=== PATIENT | female | born 1975 | race Caucasian/White ===

== ENCOUNTER 2019-06-29 20:30 | Inpatient (IN) ==
[2019-06-29 20:56] LABS: Basophils % 0.3 % (0.1-2.0); Eosinophils # 0.1 K/mm3 (0.0-0.4); Eosinophils % 1.5 % (0.1-12.0); Hematocrit 49.7 % (37.0-47.0); Hemoglobin 15.9 g/dL (12.2-16.2); Lymphocytes # 1.4 K/mm3 (0.7-4.5); Lymphocytes % 14.9 % (10-50); Mean Corpuscular Volume 93.7 fl (81-99); Mean Platelet Volume 8.4 fl (7.4-10.4); Monocytes # 0.4 K/mm3 (0.1-1.0); Neutrophils # 7.4 K/mm3 (1.8-7.8); Neutrophils % 79.3 % (37.0-80.0); Platelet Count 279 K/mm3 (142-424); Red Cell Distribution Width 13.5 % (11.5-17.5); White Blood Count 9.3 K/mm3 (4.8-10.8)
--- NOTE | 2019-06-29 21:02 | Emergency Department Note ---
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 Diabetes mellitus complication status: with other specified complication Qualified Code(s): E11.69 - Type 2 diabetes mellitus with other specified complication Obesity Qualifiers: Obesity type: due to excess calories Obesity classification: adult class 3 (BMI >= 40) Serious obesity comorbidity presence: with serious comorbidity Body mass index: BMI 40.0-44.9 Qualified Code(s): E66.01 - Morbid (severe) obesity due to excess calories; Z68.41 - Body mass index (BMI) 40.0-44.9, adult Disposition: Admitted as Observation Condition on Discharge: Good Referrals: Marbin Del Real [Primary Care Provider] - - Critical Care Critical Care Time: No Attestation: On , the high probability of a clinically significant, sudden or life threatening deterioration of the following system(s) required my full and direct attention, intervention and personal management. The time I documented below is in addition to time spent performing reported procedures but includes the following listed in this critical care notation. Medical Decision Making - Medical Records Medical records reviewed: Yes: I reviewed the patient's medical records. - Dameon Inquiry Pt receiving controlled substance: No Vital Signs: 06/29/19 20:39 06/29/19 21:20 Temperature 97.8 F Temperature Source Oral Pulse Rate [Right] 103 H 92 H Respiratory Rate 20 Blood Pressure [Right Arm] 161/105 H 158/91 H Blood Pressure Mean [Right Arm] 123 113 Blood Pressure Source [Right Arm] Automatic Cuff Blood Pressure Position [Right Arm] Sitting 02 Sat by Pulse Oximetry 100 Oxygen Delivery Method Room Air - Lab Data Lab results reviewed: Yes: I reviewed the patient's lab results. Lab Results 06/29/19 20:48: WBC 9.3, RBC 5.30, Hgb 15.9, Hct 49.7 H, MCV 93.7, MCH 30.0, MCHC 32.0, RDW 13.5, Plt Count 279, MPV 8.4, Neut % (Auto) 79.3, Lymph % (Auto) 14.9, Sutton % (Auto) 4.0, Eos % (Auto) 1.5, Baso % (Auto) 0.3, Neut # (Auto) 7.4, Lymph # (Auto) 1.4, Sutton # (Auto) 0.4, Eos # (Auto) 0.1, Baso # (Auto) 0.0 06/29/19 20:48: Sodium 134 L, Potassium 3.6, Chloride 97 L, Carbon Dioxide 27, Anion Gap 13.6, BUN 9, Creatinine 0.84, Estimated Creat Clear 75, Estimated GFR 74, Est GFR ( Amer) 90, Glucose 261 H, Calcium 9.4, Troponin I 0.99 H Result diagrams: 06/29/19 20:48 06/29/19 20:48 Orders (Tests/Meds): ED MEDICATIONS Discontinued Medications Generic Name Dose Route Start Last Admin Trade Name Freq PRN Reason Stop Dose Admin Aspirin 243 mg 06/29/19 20:49 06/29/19 20:59 Aspirin 81mg Chewable Tablet PO 06/29/19 20:50 243 mg ONCE ONE Administration Ketorolac Tromethamine 30 mg 06/29/19 20:52 06/29/19 20:59 Toradol 30mg/Ml Vial IV 06/29/19 20:53 30 mg ONCE ONE Administration Nitroglycerin 0.4 mg 06/29/19 20:52 06/29/19 21:00 Nitrostat 0.4mg Sl Tablet SL 06/29/19 20:53 1 tab ONCE ONE Administration ORDERS Category Date Time Status XR chest 2V Stat Exams 06/29/19 20:49 Taken Hemoglobin A1C Stat Lab 06/29/19 21:32 Ordered Lipid Panel Stat Lab 06/29/19 21:32 Ordered Troponin I Q3H Lab 06/29/19 23:50 Ordered Troponin I Q3H Lab 06/30/19 02:50 Ordered ECG Request by /Erica Stat Y 06/29/19 20:49 Ordered - Radiology Data #1 Image(s): Chest Image Reviewed: Yes I reviewed the patient's radiology image Preliminary Findings: Normal/NAD - ECG Data Tracing #1 Normal Sinus Rhythm: Yes Ischemic changes: non-specific ST-T wave changes - Physician Consults Physician Consulted: roman Reason -: Admission Additional Consult: adi Reason -: Pt condition Chest Pain HPI - General Chief Complaint: Chest Pain Stated Complaint: Left shoulder,chest and R shoulder Time Seen by Provider: 06/29/19 20:45 Mode of Arrival: Ambulatory Source of Information: Patient, Relative, Medical Record Limitations: No Limitations Description of Symptoms (Recalled from ER Triage Doc. by RN): PATIENT PRESENTS TO TX 7 C/O L SHOULDER PAIN X "A COUPLE OF DAYS." STATES TODAY SHE NOTICED THE PAIN RADIATING DOWN TO L SIDE OF CHEST, ACROSS HER NECK AND TO R SHOULDER. PATIENT REPORTS PAIN IS RESOLVED UPON ARRIVAL. REPORTS TAKING ASA 81MG AND TYLENOL HEEL DIPPER. PATIENT REPORTS HISTORY OF RI AND FIBROMYALGIA. - History of Present Illness HPI narrative: this pt reports lt sided scapular pain over the last few days - with radiation to lt ant chest with nausea tonight but no sob and reports rad to bilat upper ext - had same pain 5 yrs ago and had elevated cardiac enz and cath at [facility] with no stents - on no meds - has untreated bp and diabetes and uses tob MD complaint: chest pain indicative of cardiac Onset (ago): day(s) Duration: intermittent Activity at onset: during rest Pain location: other (scapular ) Quality: sharp Pain radiation: back Relieving factors: nothing Risk Factors for CAD: Hypertension, Hypercholesterolemia, Family Hx of CAD, Diabetes, Smoking Treatments prior to or on arrival for Cardiac Chest Pain: none - BHARTI Score for Non-Stemi Age of Patient: 40-49 years old Heart Rate: 90-109 bpm Systolic Blood Pressure: 160-199 mmHg Serum Creatinine: 0.80-1.19 mg/dl CHF Kill[place] Class: I-No CHF Other Risk Factors: Elevated Cardiac Enzymes or Biomarkers Non-Stemi Risk Score: 71 - Related Data Prior Cardiac Testing/Procedures: Cardiac Angiogram On Oral Contraceptives: No Home Medications Medication Instructions Recorded Confirmed No Known Home Medications 06/29/19 06/29/19 Allergies Allergy/AdvReac Type Severity Reaction Status Date / Time acetaminophen [From Vicodin] AdvReac Vomiting Verified 06/29/19 20:51 hydrocodone [From Vicodin] AdvReac Vomiting Verified 06/29/19 20:51 oxycodone [From Percocet] AdvReac Vomiting Verified 06/29/19 20:51 LISINOPRIL Allergy Intermediate JOBY COUGH Uncoded 06/04/17 15:33 COCONUT Allergy Unknown Uncoded 06/04/17 15:33 CODEINE Allergy Unknown NA-NAUSEA/V Uncoded 06/04/17 15:33 OMITING ONION Allergy Unknown Uncoded 06/04/17 15:33 STRAWBERRIES Allergy Unknown Uncoded 06/04/17 15:33 [facility] History - Hepatitis A Screen Drug use history?: No High risk sexual behaviors?: No History of sexually transmitted infection?: No Currently employed?: No Childcare worker?: No Do you have indoor plumbing?: Yes Do you have electricity?: Yes Attestation statement:: This patient has been screened for Hepatitis A risk factors. I have reviewed the patient's past medical history: Yes - Social History Smoking Status: Current every day smoker Tobacco Type: cigarettes # Packs/Day (cigarettes): 1 Alcohol Intake: former Substance Use Type: opiates, prescription drug Occupational Status: employed ROS Obtained: Yes All systems reviewed & no additional complaints - Constitutional Constitutional: Denies fever(s) - Eyes Eyes: Denies change in vision - ENT Ears, Nose, Mouth, and Throat: Denies sore throat - Cardiovascular Cardiovascular: Denies chest pain - Respiratory Respiratory: No cough - Gastrointestinal Gastrointestingal: Denies: abdominal pain - Genitourinary Female Genitourinary: Denies hematuria - Integumentary/Breasts Skin/Breast: Denies rash - Neurologic Neurologic: Denies frequent falls, Denies seizure-like activity Physical Exam - General General appearance: alert, obese - Head Head exam: normocephalic - Eye Eye exam: Present: PERRL, EOMI - ENT ENT exam: Present: mucous membranes moist - Neck Neck exam: Absent: trachea midline - Respiratory Respiratory exam: Present: normal lung sounds bilaterally. Absent: respiratory distress - Cardiovascular Cardiovascular exam: Present: regular rate, systolic murmur. Absent: rubs, gallop - Abdominal Exam Abdominal exam: Present: soft - Extremities Exam Extremities exam: Present: full ROM - Neurological Exam Neurological exam: Present: alert, oriented X3, CN II-XII intact - Psychiatric Psychiatric exam: Present: normal affect - Skin Skin exam: Absent: rash
[2019-06-29 21:22] LABS: Anion Gap 13.6 mEq/L (5-15); Calcium 9.4 mg/dL (8.5-10.1)
[2019-06-29 21:46] LABS: Chol/HDL Ratio 4.8 (1-3.5)
[2019-06-29 22:14] LABS: Microscopic, Urine URINE MICROSCOPIC (MICROSCOPIC)
[2019-06-29 22:17] LABS: Appearance,Urine CLEAR (Clear); Bilirubin,Urine Negative (Negative); Blood, Urine Negative (Negative); Color,Urine YELLOW (Yellow); Glucose,Urine (UA) 3+ (Negative); Ketones,Urine Negative (Negative); Leukocyte Esterase,Urine Negative (Negative); PH,Urine 6.5 (5.0-8.5); Protein,Urine Negative (Negative)
[2019-06-29 22:23] LABS: Bacteria,Urine Trace /lpf
[2019-06-29 22:26] LABS: Amphetamine/Metha Screen,Urine Negative ng/mL (<1000); Barbiturates Screen,Urine Negative ng/mL (<200); Benzodiazepines Screen,Urine Negative ng/mL (<200); Cannabinoid Screen,Urine Negative ng/mL (<50); Cocaine Screen,Urine Negative ng/mL (<300); Methadone Screen,Urine Negative ng/mL (<300); Opiate Screen,Urine Negative ng/mL (<300); Phencyclidine Screen,Urine Negative ng/mL (<25)
[2019-06-30 05:41] LABS: Basophils % 0.4 % (0.1-2.0); Eosinophils # 0.2 K/mm3 (0.0-0.4); Hematocrit 40.6 % (37.0-47.0); Lymphocytes # 2.2 K/mm3 (0.7-4.5); Lymphocytes % 24.5 % (10-50); Mean Corpuscular HGB Conc 34.2 g/dL (31.8-35.4); Mean Corpuscular Volume 88.7 fl (81-99); Mean Platelet Volume 8.5 fl (7.4-10.4); Monocytes # 0.4 K/mm3 (0.1-1.0); Monocytes % 4.2 % (1.7-9.3); Neutrophils # 6.1 K/mm3 (1.8-7.8); Neutrophils % 68.9 % (37.0-80.0); Platelet Count 261 K/mm3 (142-424); Red Blood Count 4.58 M/mm3 (4.20-5.40); Red Cell Distribution Width 13.4 % (11.5-17.5); White Blood Count 8.9 K/mm3 (4.8-10.8)
[2019-06-30 05:43] LABS: Anion Gap 12.2 mEq/L (5-15); Calcium 8.9 mg/dL (8.5-10.1); INR 0.94 (0.9-1.1); Prothrombin Time 9.8 seconds (9.4-11.8)
--- NOTE | 2019-06-30 07:12 | Pharmacy Consult Notes ---
[facility] Pharmacy VTE Monitoring - Patient Demographics Admission date: 06/29/19 Report Date: 06/30/19 Time: 07:12 Allergies/Adverse Reactions: Patient Allergies red dye Allergy (Severe, Verified 06/29/19 23:47) facial/throat swelling tomato Allergy (Unknown, Verified 06/30/19 02:09) Cough AND Heartburn hydrocodone [From Vicodin] Adverse Reaction (Verified 06/29/19 20:51) Vomiting oxycodone [From Percocet] Adverse Reaction (Verified 06/29/19 20:51) Vomiting COCONUT Allergy (Severe, Uncoded 06/29/19 23:47) facial swelling STRAWBERRIES Allergy (Severe, Uncoded 06/29/19 23:47) facial/throat swelling LISINOPRIL Allergy (Intermediate, Uncoded 06/04/17 15:33) JOBY COUGH CODEINE Allergy (Mild, Uncoded 06/29/19 23:47) NA-NAUSEA/VOMITING ONION Allergy (Unknown, Uncoded 06/29/19 23:47) Vomiting Height: 1.65 m Weight: 110.45 kg Patient Problems: Current Active Problems Non-STEMI (non-ST elevated myocardial infarction) (Acute) HTN (hypertension) (Acute) Diabetes mellitus (Acute) Obesity (Acute) Tobacco use (Acute) - VTE Risk Labs: VTE Related Lab Results Hgb 14.0 g/dL (12.2-16.2) D 06/30/19 05:20 Hct 40.6 % (37.0-47.0) 06/30/19 05:20 Plt Count 261 K/mm3 (142-424) 06/30/19 05:20 PT 9.8 seconds (9.4-11.8) 06/30/19 05:20 INR 0.94 (0.9-1.1) 06/30/19 05:20 BUN 7 mg/dL (7-18) 06/30/19 05:20 Creatinine 0.65 mg/dL (0.55-1.02) D 06/30/19 05:20 Estimated Creat Clear 195 mL/min (50-200) 06/30/19 05:20 VTE Score: 11 VTE Risk Level: Moderate Risk - Prophylaxis VTE Prophylaxis Ordered?: Yes Types of VTE Prophylaxis: TEDS Knee High Location of Applied Device: Bilateral Lower Extremeties
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
--- NOTE | 2019-06-30 09:06 | Electrocardiograph Report ---
APPROVED REPORT Exam: Resting ECG HR:93 bpm ECG Measurements Heart Rate 93 AXES NH 142 P 43 QRSd 70 QRS -3 QT 360 T46 QTc 447 <Conclusion> Normal sinus rhythm Possible Left atrial enlargement NDST-T Changes Abnormal ECG Electronically signed by : Robert Flowers, 06/30/2019 09:06:13
--- NOTE | 2019-06-30 20:21 | Cardiology Report ---
APPROVED REPORT EXAM: Comprehensive 2D, Doppler, and color-flow Echocardiogram Thread Drawer: Mar[facility] CRT Ht: 5 ft 4 in Wt: 250lbs BSA: 2.15 BP: 158/91 mmHg Indications: cp, smoking, obesity, old mi x 2, htn, dm, htn 2D Dimensions LVOT 1.97 cm (M/F) 1.5-2.5 M-Mode Dimensions RVDd 2.52 cm (0.9-2.6)LVDd 4.20 cm (3.5-5.7) LVDs 3.14 cm (3.5-5.7)IVSd 1.81 cm (0.6-1.1) PWd 0.83 cm (0.6-1.1)EF (Teich) 50.30% FS 25.20% EDV (Teich) 78.60 mL ESV (Teich) 39.10 mL LV Diastology E/A Ratio 0.72 Mitral Valve MV A Velocity 84.00 (40-130 cm/s) Left Ventricle Left atrium is mildly enlarged, left ventricle is normal size, mild concentric left ventricular hypertrophy, visually estimated ejection fraction 40 to 45% with multiple segmental wall motion abnormality described above, grade 1 diastolic dysfunction seen with tissue Doppler evidence of raise left atrial pressure. Right Ventricle Right atrium and right ventricle are normal size and contractility. Aortic Valve Aortic valve is thickened and calcified leaflet chordae display good mobility, there is no aortic stenosis or aortic insufficiency. Mitral Valve Mitral valve is grossly normal, there is mild mitral regurgitation. Tricuspid Valve Tricuspid valve is grossly normal, there is mild tricuspid regurgitation, tricuspid regurgitation jet velocity is inadequate for calculation of the right ventricular systolic pressure. Pulmonic Valve Pulmonic valve is poorly visualized. Great Vessels Aortic root is normal size. Pericardium No significant pericardial effusion noted. Conclusion 1. Mildly enlarged left atrium, normal left ventricular size, mild concentric left ventricular hypertrophy, visually estimated ejection fraction 40 to 45% with multiple segmental wall motion abnormality described above, grade 1 diastolic dysfunction seen with tissue Doppler evidence of raise left atrial pressure. 2. Mild mitral and tricuspid regurgitation. 3. No significant pericardial effusion noted. Electronically signed by : Jerod Elise, 06/30/2019 20:20:49
[2019-07-01 06:14] LABS: Basophils % 0.2 % (0.1-2.0); Eosinophils # 0.2 K/mm3 (0.0-0.4); Eosinophils % 1.6 % (0.1-12.0); Hemoglobin 14.3 g/dL (12.2-16.2); Lymphocytes # 1.4 K/mm3 (0.7-4.5); Lymphocytes % 13.9 % (10-50); Mean Corpuscular Volume 90.2 fl (81-99); Monocytes # 0.4 K/mm3 (0.1-1.0); Monocytes % 4.3 % (1.7-9.3); Neutrophils # 8.2 K/mm3 (1.8-7.8); Neutrophils % 80.1 % (37.0-80.0); Platelet Count 245 K/mm3 (142-424); Red Blood Count 4.66 M/mm3 (4.20-5.40); Red Cell Distribution Width 13.4 % (11.5-17.5); White Blood Count 10.2 K/mm3 (4.8-10.8)
[2019-07-01 06:24] LABS: Anion Gap 12.4 mEq/L (5-15); Calcium 8.7 mg/dL (8.5-10.1)
--- NOTE | 2019-07-01 07:47 | Progress Note ---
<Carolina Crowder - Last Filed: 07/01/19 07:42> Internal Medicine - PN: Subj *Date: 07/01/19 *Time: 07:42 Interval history: Patient states her anxiety has kicked in;she had trouble sleeping last night; she handles this at home by feeding the chickens or cleaning the house. She states she did take Celexa about 3 years ago for depression/anxiety and would like to start again. Otherwise feels better. she describes more energy and no CP. She is eating without problems and bowels have moved. She is voiding QS. She ambulates without difficulty. Pt wishes to go home. BP has continued to be elevated and she received an extra dose of BP med yesterday. BS have been elevated requiring Insulin; Dietary did see pt yesterday with assessment and teaching. Cardiac cath completed yesterday with the following results: IMPRESSION Severe proximal LAD disease which is the culprit for the acute non-ST elevation myocardial infarction Successful stenting the proximal LAD severe disease reduced to 0% with 2 drug-eluting stents placed in a contiguous manner Mildly reduced ejection fraction with regional wall motion abnormality Normal to mildly elevated LVEDP PLAN 1. Brilinta 90 twice daily plus aspirin 81 mg a day for 1 year 2. LDL less than 55 to be achieved with high intensity statin 3. JOBY inhibitors combined with carvedilol and uptitrated as tolerated 4. Avoidance of tobacco products 5. Aggressive risk factor modification 6. Cardiac rehabilitation Echo completed yesterday with pending results. Laboratory Tests 06/29/19 06/29/19 20:48 20:48 Hemoglobin A1c 8.4 H Triglycerides 156 Cholesterol 208 H LDL Cholesterol 134 H VLDL Cholesterol 31 HDL Cholesterol 43 Cholesterol/HDL Ratio 4.8 H Exam Vital signs and Labs for Last 24 Hours: Temp Pulse Resp BP Pulse Ox 98.0 F 79 16 141/69 H 94 L 06/30/19 20:25 07/01/19 04:00 07/01/19 04:00 07/01/19 04:00 07/01/19 04:00 Laboratory Results - last 24 hr 06/30/19 10:56: POC Glucose 192 H 06/30/19 12:55: Activated Clotting Time 331 H* 06/30/19 16:52: POC Glucose 212 H 06/30/19 20:11: POC Glucose 268 H 07/01/19 06:04: WBC 10.2, RBC 4.66, Hgb 14.3, Hct 42.0, MCV 90.2, MCH 30.7, MCHC 34.0, RDW 13.4, Plt Count 245, MPV 9.0, Neut % (Auto) 80.1 H, Lymph % (Auto) 13.9, [place] % (Auto) 4.3, Eos % (Auto) 1.6, Baso % (Auto) 0.2, Neut # (Auto) 8.2 H, Lymph # (Auto) 1.4, [place] # (Auto) 0.4, Eos # (Auto) 0.2, Baso # (Auto) 0.0 07/01/19 06:04: Sodium 135 L, Potassium 3.4 L, Chloride 102, Carbon Dioxide 24, Anion Gap 12.4, BUN 10 D, Creatinine 0.65, Estimated Creat Clear 96, Estimated GFR 99, Est GFR ( Amer) 120, Glucose 160 H, Calcium 8.7 I & O for Last 24 hours: Intake & Output 06/28/19 06/29/19 06/30/19 07/01/19 11:59 11:59 11:59 11:59 Intake Total 317 / 317 1119 / 1119 Balance 317 / 317 1119 / 1119 Weight 243 lb 8 oz 243 lb 5 oz - Constitutional no acute distress Comments: sitting on bedside crying - *Routine Respiratory Exam Present: CTA bilaterally (A&P) - *Routine Cardiovascular Exam Present: RRR Comments: ST on monitor - *Routine Abdominal Exam Present: soft, normoactive bowel sounds. Absent: tenderness - *Routine Extremities Exam Absent: edema, calf tenderness - *Routine Neurological Exam Present: alert, oriented X3 - Routine Psychiatric Exam Present: depressed, anxious Assessment and Plan (1) Non-STEMI (non-ST elevated myocardial infarction) Current visit: Yes Status: Acute Category: Medical Code(s): I21.4 - Non-ST elevation (NSTEMI) myocardial infarction (2) Diabetes mellitus Current visit: Yes Status: Acute Qualifiers: Diabetes mellitus type: type 2 Diabetes mellitus intermediate frame tender insulin use: [facility] intermediate frame tender use Diabetes mellitus complication status: with other specified complication Qualified Code(s): E11.69 - Type 2 diabetes mellitus with other specified complication Category: Medical Code(s): E11.9 - Type 2 diabetes mellitus without complications (3) HTN (hypertension) Current visit: Yes Status: Acute Qualifiers: Hypertension type: essential hypertension Qualified Code(s): I10 - Essential (primary) hypertension Category: Medical Code(s): I10 - Essential (primary) hypertension (4) Obesity Current visit: Yes Status: Acute Qualifiers: Obesity type: due to excess calories Obesity classification: adult class 3 (BMI >= 40) Serious obesity comorbidity presence: with serious comorbidity Body mass index: BMI 40.0-44.9 Qualified Code(s): E66.01 - Morbid (severe) obesity due to excess calories; Z68.41 - Body mass index (BMI) 40.0-44.9, adult Category: Medical Code(s): E66.9 - Obesity, unspecified (5) Tobacco use Current visit: Yes Status: Acute Category: Medical Code(s): Z72.0 - Tobacco use - Assessment and plan all Dx Assessment and Plan for all problems:: BS have been elevated requiring Insulin. Will start on Metformin today. Will start on Celexa this AM. She is ready for discharge if approved by cardiology with meds as per their direction. <Ron Merchant - Last Filed: 07/01/19 09:52> Internal Medicine - PN: Subj *Date: 07/01/19 *Time: 09:49 Exam Vital signs and Labs for Last 24 Hours: Temp Pulse Resp BP Pulse Ox 98.0 F 84 16 163/97 H 94 L 06/30/19 20:25 07/01/19 09:00 07/01/19 09:00 07/01/19 09:00 07/01/19 09:00 Laboratory Results - last 24 hr 06/30/19 10:56: POC Glucose 192 H 06/30/19 12:55: Activated Clotting Time 331 H* 06/30/19 16:52: POC Glucose 212 H 06/30/19 20:11: POC Glucose 268 H 07/01/19 05:07: POC Glucose 161 H 07/01/19 06:04: WBC 10.2, RBC 4.66, Hgb 14.3, Hct 42.0, MCV 90.2, MCH 30.7, MCHC 34.0, RDW 13.4, Plt Count 245, MPV 9.0, Neut % (Auto) 80.1 H, Lymph % (Auto) 13.9, [place] % (Auto) 4.3, Eos % (Auto) 1.6, Baso % (Auto) 0.2, Neut # (Auto) 8.2 H, Lymph # (Auto) 1.4, [place] # (Auto) 0.4, Eos # (Auto) 0.2, Baso # (Auto) 0.0 07/01/19 06:04: Sodium 135 L, Potassium 3.4 L, Chloride 102, Carbon Dioxide 24, Anion Gap 12.4, BUN 10 D, Creatinine 0.65, Estimated Creat Clear 96, Estimated GFR 99, Est GFR ( Amer) 120, Glucose 160 H, Calcium 8.7 I & O for Last 24 hours: Intake & Output 06/28/19 06/29/19 06/30/19 07/01/19 11:59 11:59 11:59 11:59 Intake Total 317 / 317 1739 / 1739 Balance 317 / 317 1739 / 1739 Weight 243 lb 8 oz 243 lb 5 oz Assessment and Plan (1) Non-STEMI (non-ST elevated myocardial infarction) Current visit: Yes Status: Acute Category: Medical Code(s): I21.4 - Non-ST elevation (NSTEMI) myocardial infarction (2) Diabetes mellitus Current visit: Yes Status: Acute Qualifiers: Diabetes mellitus type: type 2 Diabetes mellitus intermediate frame tender insulin use: without intermediate frame tender use Diabetes mellitus complication status: with other specified complication Qualified Code(s): E11.69 - Type 2 diabetes mellitus with other specified complication Category: Medical Code(s): E11.9 - Type 2 diabetes mellitus without complications (3) HTN (hypertension) Current visit: Yes Status: Acute Qualifiers: Hypertension type: essential hypertension Qualified Code(s): I10 - Essential (primary) hypertension Category: Medical Code(s): I10 - Essential (primary) hypertension (4) Obesity Current visit: Yes Status: Acute Qualifiers: Obesity type: due to excess calories Obesity classification: adult class 3 (BMI >= 40) Serious obesity comorbidity presence: with serious comorbidity Body mass index: BMI 40.0-44.9 Qualified Code(s): E66.01 - Morbid (severe) obesity due to excess calories; Z68.41 - Body mass index (BMI) 40.0-44.9, adult Category: Medical Code(s): E66.9 - Obesity, unspecified (5) Tobacco use Current visit: Yes Status: Acute Category: Medical Code(s): Z72.0 - Tobacco use (6) Coronary artery disease Current visit: Yes Status: Chronic Category: Medical Code(s): I25.10 - Atherosclerotic heart disease of [place] coronary artery without angina pectoris (7) Stented coronary artery Current visit: Yes Status: Acute Category: Surgical Code(s): Z95.5 - Presence of coronary angioplasty implant and graft (8) Hyperlipidemia Current visit: Yes Status: Chronic Category: Medical Code(s): E78.5 - Hyperlipidemia, unspecified (9) Anxiety Current visit: Yes Status: Acute Category: Medical Code(s): F41.9 - Anxiety disorder, unspecified (10) Cardiomyopathy Current visit: Yes Status: Acute Category: Medical Code(s): I42.9 - Cardiomyopathy, unspecified (11) Anxiety disorder Current visit: Yes Status: Acute Category: Medical Code(s): F41.9 - Anxiety disorder, unspecified - Assessment and plan all Dx Assessment and Plan for all problems:: Patient seen and examined. Concur with above assessment and plan. She is stable for discharge per cardiology recommendations. She is also being started on insulin and is given an order to obtain a home glucometer to monitor her blood sugar. As noted, she is also been started on Celexa for her anxiety. She is to follow-up with Dr. Patel in 1 to 2 weeks and with [facility] in 2 weeks.
--- NOTE | 2019-07-01 09:21 | Progress Note ---
Subjective Date: 07/01/19 Time: 09:00 Principal diagnosis: angina Interval history: This is a 43-year-old white female who presented to the emergency department with complaints of shoulder pain which she attributed to wrestling with her [place] Gallow[place]. She states that this did progress into chest discomfort as well. She underwent left cardiac catheterization secondary to an elevated troponin and had stenting to the LAD with 2 drug-eluting stents. The patient had an ejection fraction around 45%. Her LVEDP was mildly elevated. This morning she denies any chest pain or pressure. She denies any shortness of breath or edema. She denies any fever, chills, nausea, vomiting, diarrhea, PND or orthopnea. She is complaining of some anxiety this morning. She states that the school just called and said that her son was vomiting and this has made her somewhat anxious. She is being started on Celexa per her primary care provider. Exam Vital signs and Labs for Last 24 Hours: Temp Pulse Resp BP Pulse Ox 98.0 F 84 16 163/97 H 94 L 06/30/19 20:25 07/01/19 09:00 07/01/19 09:00 07/01/19 09:00 07/01/19 09:00 Laboratory Results - last 24 hr 06/30/19 10:56: POC Glucose 192 H 06/30/19 12:55: Activated Clotting Time 331 H* 06/30/19 16:52: POC Glucose 212 H 06/30/19 20:11: POC Glucose 268 H 07/01/19 05:07: POC Glucose 161 H 07/01/19 06:04: WBC 10.2, RBC 4.66, Hgb 14.3, Hct 42.0, MCV 90.2, MCH 30.7, MCHC 34.0, RDW 13.4, Plt Count 245, MPV 9.0, Neut % (Auto) 80.1 H, Lymph % (Auto) 13.9, [place] % (Auto) 4.3, Eos % (Auto) 1.6, Baso % (Auto) 0.2, Neut # (Auto) 8.2 H, Lymph # (Auto) 1.4, [place] # (Auto) 0.4, Eos # (Auto) 0.2, Baso # (Auto) 0.0 07/01/19 06:04: Sodium 135 L, Potassium 3.4 L, Chloride 102, Carbon Dioxide 24, Anion Gap 12.4, BUN 10 D, Creatinine 0.65, Estimated Creat Clear 96, Estimated GFR 99, Est GFR ( Amer) 120, Glucose 160 H, Calcium 8.7 I & O for Last 24 hours: Intake & Output 06/28/19 06/29/19 06/30/19 07/01/19 23:59 23:59 23:59 23:59 Intake Total 1426 / 1436 630 / 630 Balance 1426 / 1436 630 / 630 Weight 243 lb 8 oz 243 lb 8.009 oz 243 lb 5 oz Narrative: Telemetry strip is sinus rhythm. Echocardiogram shows . Mildly enlarged left atrium, normal left ventricular size, mild concentric left ventricular hypertrophy, visually estimated ejection fraction 40 to 45% with multiple segmental wall motion abnormality described above, grade 1 diastolic dysfunction seen with tissue Doppler evidence of raise left atrial pressure. Mild mitral and tricuspid regurgitation. No significant pericardial effusion noted. - Constitutional no acute distress, morbidly obese - *Routine HEENT Exam Head: Present: normocephalic, atraumatic Eye: Present: EOMI, PERRL ENT: Present: mucous membranes moist - *Routine Neck Exam Present: supple, full ROM, normal carotid upstroke. Absent: JVD, carotid bruit, lymphadenopathy - *Routine Respiratory Exam Present: CTA bilaterally - *Routine Cardiovascular Exam Present: RRR, Normal S1, Normal S2. Absent: murmur - *Routine Abdominal Exam Present: soft, normoactive bowel sounds. Absent: tenderness - *Routine Extremities Exam Present: full ROM, pulses intact, normal capillary refill. Absent: cyanosis, clubbing, edema - *Routine Skin Exam Present: intact, warm. Absent: erythema, rash - *Routine Neurological Exam Present: alert, oriented X3, CN II-XII intact. Absent: sensory deficit, motor deficit - Detailed Eye Exam Eyelids: Left normal inspection Progress Note: A&P (1) Non-STEMI (non-ST elevated myocardial infarction) Status: Acute Current Visit: Yes (2) Diabetes mellitus Status: Acute Current Visit: Yes (3) HTN (hypertension) Status: Acute Current Visit: Yes (4) Obesity Status: Acute Current Visit: Yes (5) Tobacco use Status: Acute Current Visit: Yes (6) Coronary artery disease Status: Chronic Current Visit: Yes (7) Stented coronary artery Status: Acute Current Visit: Yes (8) Hyperlipidemia Status: Chronic Current Visit: Yes (9) Anxiety Status: Acute Current Visit: Yes (10) Cardiomyopathy Status: Acute Current Visit: Yes Assessment and Plan for All Diagnoses:: Plan: 1. The patient was admitted to the hospital and stenting to the LAD with 2 the drug-eluting stents. She will remain on Brilinta and aspirin for dual antiplatelet therapy. I had a long discussion with the patient about dual antiplatelet therapy and she verbalizes understanding. 2. Her LDL goal is less than 55. Her LDL is currently 134. She has been started on atorvastatin. 3. The patient has been started on both a beta-tricia and an arb status post stenting. 4. The patient's heart rate is a little higher than I would like during my exam but the patient states she is really anxious right now because her son is at school vomiting. She states this is very typical for her heart rate to be this high. We will leave this alone for now. If she continues to have a higher heart rate on an outpatient basis we will consider titrating her beta-tricia at that time. 5. Her blood pressure is acceptable. 6. She is diabetic. She has been started on metformin. 7. Patient does have issues with anxiety she has been started on Celexa per her primary. will defer. 8. the patient does have cardiomyopathy. Her ejection fraction is 40 to 45%. As mentioned before she is on a beta-tricia and an Arb. 9. No further recommendations at this time from a cardiac standpoint. She is to follow-up in 1 to 2 weeks on an outpatient basis. Next Thank you for the opportunity to help her dissipate in the care of this patient.
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
== END 2019-07-01 10:58 | disposition home or self-care (01) | DRG 247 ==
LOC: ER 20:30 → 2ND 20:30 → OBSVTOIN 22:37 → 2ND 22:37
PROVIDERS: ADMIT Family Medicine; ATTEND Family Medicine
CPT/HCPCS: 36415; 71020; 71046; 80048; 80061; 80305; 81001; 82962; 83036; 83735; 84484; 85025; 85347; 85610; 92928; 93005; 93306; 93458; 99152; 99284; C1725; C1769; C1876; C9600; J1644; Q9967

== ENCOUNTER → 2019-07-27 10:08 | Outpatient (CLI) | payer BC, SELFPAY | PROVIDERS: PCP Family Medicine; Visit Provider Internal Medicine Cardiovascular Disease | DX: G47.33 Obstructive sleep apnea (adult) (pediatric) (principal); R06.83 Snoring; R40.0 Somnolence; E66.9 Obesity, unspecified | CPT/HCPCS: G0399 ==

== ENCOUNTER 2020-08-18 09:44 | Observation (INO) | payer OTHER, SELFPAY ==
[2020-08-18] VITALS (23 sets, daily range): BP systolic 114–170; BP diastolic 68–92; PULSE 78–117; RESP 13–20; TEMP 36.6–37.4; O2SAT 92–98; BMI 50.3
--- NOTE | 2020-08-18 | IR_ITS ---
APPROVED REPORT Patient Location: [facility] Side Laster: ALICIA Ruiz RT (R) PROCEDURES Left heart catheterization Left ventriculogram Selective coronary angiogram Drug-eluting stent deployment to the ostial proximal mid and distal LAD in a contiguous manner INDICATION Acute coronary syndrome with non-ST elevation myocardial infarction, Coronary disease, Acute on chronic occlusion, Informed consent was obtained prior to the procedure. COMPLICATIONS None Estimated Blood Loss: less than 10ml TECHNIQUE One percent lidocaine used to anesthetize the right anterior aspect of the wrist. The right radial artery was accessed via the Seldinger technique. A 6 Serbian sheath was placed in the right radial artery. 2.5 mg of verapamil, 800 mcg of nitroglycerin, 1mg Lidocaine and 5000 U Heparin were given through the arterial sheath. A AvantCreditpa catheter was used to perform left heart catheterization left ventriculogram and selective coronary angiogram. Therapeutic heparin was administered giving a therapeutic ACT. A Choice PT extra-support wire was placed into the circumflex artery and an additional wire was used to push through the acute on chronic occlusion in the LAD. A 2 mm balloon was used to dilate up and down the LAD. Flow was not restored therefore 3 mm x 38 mm resolute Elder stent was placed in the ostial proximal segment and deployed at 20 paul. A guide liner was then advanced in order to give better angiography. A 2.5 mm balloon was then dilated into the mid LAD which did restore some antegrade flow and showed severe stenosis in the mid to distal LAD. A 2.5 x 38 mm resolute [place] stent was then placed in the mid LAD and deployed at 16 paul. An additional 3 mm x 30 mm resolute [place] stent was then placed proximal to the 2.5 mm balloon overlapping the proximal portion and extending into the distal portion of the 38 mm first stent placed. The stent was deployed at 20 paul. 800 mcg of intracoronary nitroglycerin was administered. The guide liner was advanced into the mid and distal LAD to provide better opacification of the artery and better diagnostic angiography. In addition to the severe mid LAD disease after stenting it was identified the entire distal and apical segment of the LAD was severely atretic with small vessel vasculopathy. There was NASRA-3 flow down the vessel at the end of the procedure with NASRA 0 flow at the beginning of the procedure. After achieving excellent angiographic results the apparatus was removed the sheath was removed good hemostasis was achieved using TR banding patient was transferred to the postop holding area in stable condition ANGIOGRAPHIC RESULTS The left main artery Normal The left anterior descending artery Initially was ostially occluded with no collateralization from the circumflex artery or right coronary artery. Following stenting the ostial proximal mid segments were widely patent with excellent inline flow. This stents extended into the proximal portion of the distal LAD and were also widely patent. Distal to the last stent the LAD was atretic as it wraps the apex yet still had inline NASRA-3 flow The circumflex artery Codominant normal with mild luminal irregularities The right coronary artery Codominant and patent with mild 10% luminal irregularities The RODRIGUEZ ventriculogram reveals Severe dilatation with anterior wall akinesis estimated ejection fraction less than 30% The left ventricular end-diastolic pressure 25 mmHg IMPRESSION Acute on chronically occluded LAD as described above Successful percutaneous revascularization of the ostial proximal mid and proximal portion of the distal LAD all in a contiguous manner with 3 drug-eluting stents
--- NOTE | 2020-08-18 09:51 | ECG_ITS ---
APPROVED REPORT Exam: Resting ECG HR:103 bpm ECG Measurements Heart Rate 103 AXES TX 140 P 64 QRSd 80 QRS 12 QT 374 T 58 QTc 489 Conclusion Sinus tachycardia Possible Left atrial enlargement Low voltage QRS Cannot rule out Anteroseptal infarct, age undetermined Abnormal ECG Electronically signed by : Selvin Valente, 08/19/2020 20:36:53
--- NOTE | 2020-08-18 09:58 | XR_ITS ---
PROCEDURE: XR CHEST PORTABLE CLINICAL HISTORY: pain COMPARISON: CR CXR CHEST(2 VIEWS-NOT PORTABLE) from 10/30/2013 CR CXR1 CHEST-PORTABLE from 12/14/2014 CR XR CHEST 2V from 06/29/2019 FINDINGS: The cardiomediastinal silhouette and pulmonary vascularity are within normal limits. The lungs are clear without infiltrates, suspicious nodules, or pleural effusions. No acute bony abnormalities. IMPRESSION: No acute findings. Dictated by: Gen Owens MD 08/18/2020 13:45 Gen Owens MD in [place] 08/18/2020 13:45
[2020-08-18 10:10] LABS: Basophils % 0.4 % (0.1-2.0); Eosinophils # 0.1 K/mm3 (0.0-0.4); Eosinophils % 1.4 % (0.1-12.0); Hematocrit 41.6 % (37.0-47.0); Hemoglobin 12.4 g/dL (12.2-16.2); Lymphocytes # 1.6 K/mm3 (0.7-4.5); Lymphocytes % 17.9 % (10-50); Mean Corpuscular HGB Conc 29.9 g/dL (31.8-35.4); Mean Corpuscular Hemoglobin 24.6 pg (27.0-31.2); Mean Corpuscular Volume 82.4 fl (81-99); Monocytes # 0.4 K/mm3 (0.1-1.0); Monocytes % 4.4 % (1.7-9.3); Neutrophils # 6.8 K/mm3 (1.8-7.8); Neutrophils % 75.8 % (37.0-80.0); Platelet Count 275 K/mm3 (142-424); Red Blood Count 5.05 M/mm3 (4.20-5.40); Red Cell Distribution Width 16.4 % (11.5-17.5)
[2020-08-18 10:21] LABS: Chloride 103 mmol/L (98-107)
[2020-08-18 10:22] LABS: Potassium 3.7 mmoL/L (3.5-5.1); Sodium 138 mmol/L (136-145)
[2020-08-18 10:24] LABS: Blood Urea Nitrogen 9 mg/dl (7-17); Creatinine Clearance Estimated 103 mL/min (50-200); Estimated Glomerular Filt Rate 109 ml/min (>60); GFR (African American) 131 ML/MIN (>60)
[2020-08-18 10:25] LABS: Anion Gap 12.7 mEq/L (5-15); Calcium 9.6 mg/dl (8.4-10.2); Carbon Dioxide 26 mmol/L (22.0-30.0); Glucose 363 mg/dl (74-100)
--- NOTE | 2020-08-18 10:27 | HMH.EDGENADL ---
ED Disposition Clinical Impression: Chest pain with moderate risk of acute coronary syndrome, Non-STEMI (non-ST elevated myocardial infarction) Disposition: Admitted As Inpatient Condition on Discharge: Serious - Critical Care Critical Care Time: No Attestation: On , the high probability of a clinically significant, sudden or life threatening deterioration of the following system(s) required my full and direct attention, intervention and personal management. The time I documented below is in addition to time spent performing reported procedures but includes the following listed in this critical care notation. Medical Decision Making - Medical Records Medical records reviewed: Yes: I reviewed the patient's medical records. - Dameon Inquiry Pt receiving controlled substance: Yes Dameon was queried for this patient: No Reason not queried -: Emergent pt cond-no time Risks and benefits of using a controlled substance: were discussed with pt by me Vital Signs: 08/18/20 09:45 08/18/20 10:51 08/18/20 11:53 Pulse Rate [Radial] 101 H 90 89 Respiratory Rate 20 Blood Pressure [Right Arm] 170/92 H 141/86 H 127/68 Blood Pressure Mean [Right Arm] 118 104 87 Blood Pressure Source [Right Arm] Automatic Cuff Automatic Cuff Blood Pressure Position [Right Arm] Sitting Sitting Sitting 02 Sat by Pulse Oximetry 98 95 97 Oxygen Delivery Method Room Air Room Air Room Air - Lab Data Lab Results 08/18/20 10:00: WBC 9.0, RBC 5.05, Hgb 12.4, Hct 41.6, MCV 82.4, MCH 24.6 L, MCHC 29.9 L, RDW 16.4, Plt Count 275, MPV 8.0, Neut % (Auto) 75.8, Lymph % (Auto) 17.9, [place] % (Auto) 4.4, Eos % (Auto) 1.4, Baso % (Auto) 0.4, Neut # (Auto) 6.8, Lymph # (Auto) 1.6, [place] # (Auto) 0.4, Eos # (Auto) 0.1, Baso # (Auto) 0.0 08/18/20 10:00: Sodium 138, Potassium 3.7, Chloride 103, Carbon Dioxide 26, Anion Gap 12.7, BUN 9, Creatinine 0.60, Estimated Creat Clear 103, Estimated GFR 109, Est GFR ( Amer) 131, Glucose 363 H, Calcium 9.6, Troponin I 0.07 H Result diagrams: 08/18/20 10:00 08/18/20 10:00 Orders (Tests/Meds): ED MEDICATIONS Generic Name Dose Route Start Last Admin Trade Name Judith PRN Reason Stop Dose Admin Aspirin 81 mg 08/19/20 09:00 Aspirin 81mg Chewable Tablet PO 09/18/20 08:59 DAILY [facility] Atorvastatin Calcium 40 mg 08/18/20 21:00 Atorvastatin 40mg Tablet PO 09/17/20 20:59 HS [facility] Fentanyl Citrate 25 mcg 08/18/20 11:52 Fentanyl 100mcg/2ml Vial IV 08/19/20 11:52 Q3MINP PRN Moderate to Severe Pain Fentanyl Citrate 50 mcg 08/18/20 11:52 Fentanyl 100mcg/2ml Vial IV 08/19/20 11:52 Q3MINP PRN Moderate to Severe Pain Fentanyl Citrate 25 mcg 08/18/20 11:52 Fentanyl 250mcg/5ml Vial IV 08/19/20 11:52 Q3MINP PRN Moderate to Severe Pain Fentanyl Citrate 50 mcg 08/18/20 11:52 Fentanyl 250mcg/5ml Vial IV 08/19/20 11:52 Q3MINP PRN Moderate to Severe Pain Flumazenil 0.2 mg 08/18/20 11:52 Flumazenil 0.1mg/Ml 5ml Vial IV 08/18/20 23:00 NEEDED PRN Sedation Heparin Sodium (Porcine) 10,000 unit 08/18/20 11:52 Heparin 1,000 Units/Ml 10ml Vial (Supervisor Landscape) IV 08/18/20 15:52 NEEDED PRN Emergency Box Cryptographer Heparin Sodium/Sodium Chloride 3,000 unit 08/18/20 11:52 Heparin 1,000 Units/500ml Ns (Supervisor Landscape) IV 08/18/20 11:53 ONCE ONE Sodium Chloride 1,000 mls @ 25 mls/hr 08/18/20 12:00 Sod Chlor 0.9% 1000ml Bag IV 08/19/20 11:52 .Q25H [facility] Irbesartan 75 mg 08/18/20 12:00 Irbesartan 75mg Tablet PO 09/17/20 11:59 DAILY [facility] Lidocaine HCl 10 ml 08/18/20 11:55 Lidocaine 1% 10ml Mdv SQ 08/18/20 11:56 ONCE ONE Metoprolol Tartrate 50 mg 08/18/20 12:00 Metoprolol Tartrate 50mg Tablet PO 09/17/20 11:59 BID JASMIN[facility] Midazolam HCl 1 mg 08/18/20 11:52 Midazolam 2mg/2ml Vial IV 08/19/20 11:52 Q3MINP PRN Sedation Midazolam HCl 1 mg 08/18/20 11:52 Midazolam Hcl
[2020-08-18 10:37] LABS: Troponin I 0.07 ng/ml (0.00-0.034)
[2020-08-18 11:04] LABS: Adenovirus,PCR Not Detected (NotDetected); Bordetella Pertussis Not Detected (NotDetected); Chlamydophila Pneumoniae, PCR Not Detected (NotDetected); Coronavirus 19, PCR Not Detected (NotDetected); Coronavirus 229E Not Detected (NotDetected); Coronavirus NL63 Not Detected (NotDetected); Coronavirus OC43 Not Detected (NotDetected); Coronovirus HKU1,PCR Not Detected (NotDetected); Human Metapneumovirus Not Detected (NotDetected); Influenza A, PCR Not Detected (NotDetected); Influenza AH1, 2009 Not Detected (NotDetected); Influenza AH1, PCR Not Detected (NotDetected); Influenza AH3,PCR Not Detected (NotDetected); Influenza B, PCR Not Detected (NotDetected); Mycoplasma Pneumoniae, PCR Not Detected (NotDetected); Parainfluenza 1, PCR Not Detected (NotDetected); Parainfluenza 2, PCR Not Detected (NotDetected); Parainfluenza 3, PCR Not Detected (NotDetected); Parainfluenza 4, PCR Not Detected (NotDetected); Respiratory Syncytial Virus Not Detected (NotDetected); Rhinovirus/Enterovirus Not Detected (NotDetected)
--- NOTE | 2020-08-18 11:08 | PC.NURSE ---
dr joshi's office paged.
--- NOTE | 2020-08-18 11:10 | PC.NURSE ---
Paged for Dr Valente
--- NOTE | 2020-08-18 11:46 | PC.NURSE ---
Cardiology at bedside
--- NOTE | 2020-08-18 11:49 | PC.NURSE ---
Called Dr Valente's office again and was told by Dinora that she didn't know when he would be available but she would give him the message.
--- NOTE | 2020-08-18 11:53 | HMH.CNCARD ---
History of Present Illness Consult date: 08/18/20 Requesting physician: Olman Kuzn Consult reason: chest pain Chief complaint: shoulder pain History of present illness: This is a 44-year-old white female who presented to the emergency department with complaints of bilateral shoulder pain. She states that this started yesterday when she was trying to lift her large dog. it started in her neck and then radiated across her bilateral shoulders and was a nagging, dull pain. She states then it radiated down both of her arms and into her fingertips making them feel numb and like they were burning. She also complains of having burning in her chest like indigestion. This is associated with shortness of breath and nausea. She denies any diaphoresis. Her symptoms persisted overnight and she came into the emergency department this morning. She has known coronary artery disease with stenting to her LAD in June 2019 with the same symptoms she is experiencing now. She states that she is profoundly short of breath and this significantly worsens when she walks or exerts herself. The shortness of breath does improve with rest. However, she does get pretty short of breath when she is just speaking to me today. Her initial troponin is elevated at 0.07. She denies any fever, chills, vomiting, diarrhea, PND or orthopnea. [facility] History I have reviewed the patient's past medical history: Yes Medical History: Reports:: Anxiety, Arrhythmia, Atherosclerotic Heart Disease, Coronary Artery Disease, Diabetes Mellitus Type 2, Gastroesophageal Reflux Disease(GERD), Hyperlipidemia, Hypertension, Myocardial Infarction, Palpitations Denies:: Cancer *Have you ever received a pneumonia vaccine?: Yes *Have you received a flu vaccine this season?: Yes Other Medical History: Reports: Arthritis, Fibromyalgia Other Surgeries: Yes: Cardiac Catheterization, Coronary Stent, , Dilation and Curettage, Tubal Ligation Fractures: Yes (L rodriguez, R foot, toes, 3 r ribs, l hand crushed, r wrist (x2)) - *Social History Smoking Status: Current every day smoker Tobacco Type: cigarettes # Packs/Day (cigarettes): 1 #Yrs smoked (if former smoker): 32 Alcohol Intake: former Substance Use Type: marijuana, crack/cocaine, opiates *Occupational Status:: disabled, other Housing: house Household Members: spouse, family, children *Travel in the last 8 weeks: None - Psychiatric History Pschychiatric History:: Reports:: Anxiety Family Hx:: Anemia, Cancer, Coronary Artery Disease, Diabetes, Heart Attack, Hyperlipidemia, Hypertension, Stroke, Thyroid Disorder, Substance abuse, Alcoholism, Mental illness Meds Home Medications Medication Instructions Recorded Confirmed Type Aspirin [Aspirin 81mg chewable 81 mg PO DAILY 08/18/20 08/18/20 History tab] Atorvastatin Calcium [Lipitor 40mg 40 mg PO HS 08/18/20 08/18/20 History Tab] Citalopram Hydrobromide 20 mg PO DAILY 08/18/20 08/18/20 History [Citalopram 20mg Tablet] Clopidogrel Bisulfate [Plavix 75mg 75 mg PO DAILY 08/18/20 08/18/20 History Tab] Irbesartan 75 mg PO DAILY 08/18/20 08/18/20 History Metformin HCl [Glucophage 500mg 500 mg PO BIDWM 08/18/20 08/18/20 History Tablet] Metoprolol Tartrate 50 mg PO BID 08/18/20 08/18/20 History Allergies Allergy/AdvReac Type Severity Reaction Status Date / Time coconut Allergy Severe FACIAL Verified 07/09/19 11:32 SWELLING red dye Allergy Severe facial/throat Verified 07/09/19 11:32 swelling strawberry Allergy Severe FACIAL/THROAT Verified 07/09/19 11:32 SWELLING codeine Allergy Mild Vomiting Verified 07/09/19 11:32 tomato Allergy Unknown Cough AND Verified 07/09/19 11:32 Heartburn onion Allergy Vomiting Verified 07/09/19 11:32 lisinopril AdvReac Intermediate JOBY COUGH Verified 07/09/19 11:32 hydrocodone [From Vicodin] AdvReac Vomiting Verified 07/09/19 11:32 oxycodone [From Percocet] AdvReac Vomiting Verified 07/09/19 11:32
--- NOTE | 2020-08-18 11:57 | PC.NURSE ---
echo at bedside
--- NOTE | 2020-08-18 11:58 | PC.NURSE ---
Dr Valente returned call.
[2020-08-18 13:40] LABS: CATHL Activated Clotting Time 396 SEC (74-125)
--- NOTE | 2020-08-18 14:40 | PC.NURSE ---
Pt arrived to the floor at this time.
--- NOTE | 2020-08-18 15:28 | HMH.HP ---
*Admission Date: 08/18/20 *Chief complaint: Chest pain *History of present illness: This is a 44-year-old female presented to the emergency department with some bilateral shoulder discomfort. Patient states that she has a history of CAD and stenting in the past. Her first time she had a heart issue, she was having some bilateral shoulder pain. The patient states that today she had similar symptoms. It is a dull nagging pain in both of her shoulders. She states that it is radiating back and forth. It is worse with movement. Patient states that she was attempting to lift her large dog yesterday night when she first had the symptoms. She denies any associated shortness of breath. She is not having any chest tightness at this time. No palpitations. No hemoptysis. She denies any headache or change in vision. No focal weakness. No abdominal pain or vomiting. Above note per ER. This is a 44-year-old white female who presented to the emergency department with complaints of bilateral shoulder pain. She states that this started yesterday when she was trying to lift her large dog. it started in her neck and then radiated across her bilateral shoulders and was a nagging, dull pain. She states then it radiated down both of her arms and into her fingertips making them feel numb and like they were burning. She also complains of having burning in her chest like indigestion. This is associated with shortness of breath and nausea. She denies any diaphoresis. Her symptoms persisted overnight and she came into the emergency department this morning. She has known coronary artery disease with stenting to her LAD in June 2019 with the same symptoms she is experiencing now. She states that she is profoundly short of breath and this significantly worsens when she walks or exerts herself. The shortness of breath does improve with rest. However, she does get pretty short of breath when she is just speaking to me today. Her initial troponin is elevated at 0.07. She denies any fever, chills, vomiting, diarrhea, PND or orthopnea. Above note per cardiology... Patient taken to radiographer cardiac catheterization - results as noted. ANGIOGRAPHIC RESULTS The left main artery Normal The left anterior descending artery Initially was ostially occluded with no collateralization from the circumflex artery or right coronary artery. Following stenting the ostial proximal mid segments were widely patent with excellent inline flow. This stents extended into the proximal portion of the distal LAD and were also widely patent. Distal to the last stent the LAD was atretic as it wraps the apex yet still had inline NASRA-3 flow The circumflex artery Codominant normal with mild luminal irregularities The right coronary artery Codominant and patent with mild 10% luminal irregularities The RODRIGUEZ ventriculogram reveals Severe dilatation with anterior wall akinesis estimated ejection fraction less than 30% The left ventricular end-diastolic pressure 25 mmHg IMPRESSION Acute on chronically occluded LAD as described above Successful percutaneous revascularization of the ostial proximal mid and proximal portion of the distal LAD all in a contiguous manner with 3 drug-eluting stents Persistent severe distal LAD disease with diffuse distal vasculopathy which is not appropriate for percutaneous or surgical revascularization Severe regional wall motion abnormality with severely reduced ejection fraction Elevated LVEDP PLAN 1. Continue Plavix and aspirin 2. Patient is once again strongly encouraged to immediately discontinue tobacco products 3. LDL less than 55 4. Start Entresto plus carvedilol as patient can hemodynamically tolerate and uptitrate as tolerated 5. Patient will benefit from loop diuretics to decrease EDP 6. Prior to discharge home patient should be fitted for a LifeVest. Her LV dysfunction is severely reduced in the anterior wall has a suggestion of possible aneurysmal dila
--- NOTE | 2020-08-18 18:36 | PC.NURSE ---
PT UNABLE TO COMPLETE MED REC. THIS NURSE ASKED PT TO HAVE SOMEONE BRIG N HOME MEDS IF POSSIBLE.
--- NOTE | 2020-08-18 20:02 | PC.NURSE ---
SHE IS AOX4, ABLE TO MAKE NEEDS KNOWN TO STAFF, SHE HAS REQUIRED 2LNC SINCE ARRIVING TO THE FLOOR. HER VSS T/O SHIFT, NO NEEDS AT THIS TIME.
[2020-08-18 20:35] LABS: POC Glucose,Bedside 280 (70-110)
[2020-08-19] VITALS (7 sets, daily range): BP systolic 125–148; BP diastolic 75–97; PULSE 80–99; RESP 18; TEMP 36.7–36.9; O2SAT 93–98; BMI 41.5
--- NOTE | 2020-08-19 04:31 | PC.NURSE ---
shift summary pts lung sounds are clear with sats maintained 90% or above on room air with a rate ranging from 16-20. pts tracelet was removed without complications. site was covered with 2X2's and tegaderm dressing is clean, dry, and intact. pt is alert and oriented X4. pt denies any pain, nausea, vomiting, or diarrhea
[2020-08-19 06:00] LABS: POC Glucose,Bedside 237 (70-110)
--- NOTE | 2020-08-19 07:18 | P.CONPHA_ITS ---
[facility] Pharmacy VTE Monitoring - Patient Demographics Admission date: 08/18/20 Report Date: 08/19/20 Time: 07:18 Allergies/Adverse Reactions: Patient Allergies coconut Allergy (Severe, Verified 07/09/19 11:32) FACIAL SWELLING red dye Allergy (Severe, Verified 07/09/19 11:32) facial/throat swelling strawberry Allergy (Severe, Verified 07/09/19 11:32) FACIAL/THROAT SWELLING codeine Allergy (Mild, Verified 07/09/19 11:32) Vomiting tomato Allergy (Unknown, Verified 07/09/19 11:32) Cough AND Heartburn onion Allergy (Verified 07/09/19 11:32) Vomiting lisinopril Adverse Reaction (Intermediate, Verified 07/09/19 11:32) JOBY COUGH hydrocodone [From Vicodin] Adverse Reaction (Verified 07/09/19 11:32) Vomiting oxycodone [From Percocet] Adverse Reaction (Verified 07/09/19 11:32) Vomiting Height: 1.63 m Weight: 110.223 kg Patient Problems: Current Active Problems Unstable angina (Acute) Chest pain with moderate risk of acute coronary syndrome (Acute) Non-STEMI (non-ST elevated myocardial infarction) (Acute) Non-STEMI (non-ST elevated myocardial infarction) (Acute) Diabetes mellitus (Chronic) Obesity (Chronic) Tobacco use (Chronic) Coronary artery disease (Chronic) Stented coronary artery (Chronic) Hyperlipidemia (Chronic) Cardiomyopathy (Chronic) - VTE Risk Labs: VTE Related Lab Results Hgb 12.4 g/dL (12.2-16.2) 08/18/20 10:00 Hct 41.6 % (37.0-47.0) 08/18/20 10:00 Plt Count 275 K/mm3 (142-424) 08/18/20 10:00 BUN 9 mg/dl (7-17) 08/18/20 10:00 Creatinine 0.60 mg/dl (0.52-1.04) 08/18/20 10:00 Estimated Creat Clear 103 mL/min (50-200) 08/18/20 10:00 VTE Score: 11 VTE Risk Level: Moderate Risk - Prophylaxis VTE Prophylaxis Ordered?: Yes Types of VTE Prophylaxis: TEDS Knee High Location of Applied Device: Bilateral Lower Extremeties
[2020-08-19 07:24] LABS: Basophils % 0.3 % (0.1-2.0); Eosinophils # 0.1 K/mm3 (0.0-0.4); Eosinophils % 0.9 % (0.1-12.0); Hematocrit 38.3 % (37.0-47.0); Hemoglobin 11.5 g/dL (12.2-16.2); Lymphocytes # 1.7 K/mm3 (0.7-4.5); Lymphocytes % 16.3 % (10-50); Mean Corpuscular HGB Conc 30.1 g/dL (31.8-35.4); Mean Corpuscular Hemoglobin 24.5 pg (27.0-31.2); Mean Corpuscular Volume 81.2 fl (81-99); Mean Platelet Volume 9.5 fl (7.4-10.4); Monocytes # 0.4 K/mm3 (0.1-1.0); Neutrophils # 8.3 K/mm3 (1.8-7.8); Neutrophils % 78.5 % (37.0-80.0); Platelet Count 277 K/mm3 (142-424); Red Blood Count 4.72 M/mm3 (4.20-5.40); Red Cell Distribution Width 16.6 % (11.5-17.5); White Blood Count 10.6 K/mm3 (4.8-10.8)
[2020-08-19 07:31] LABS: Alanine Aminotransferase 27 U/L (12-78); Albumin Level 3.7 g/dl (3.5-5.0); Alkaline Phosphatase 132 U/L (38-126); Anion Gap 10.5 mEq/L (5-15); Aspartate Amino Transferase 22 U/L (14-36); Bilirubin,Indirect 1.3 mg/dL (0.0-0.9); Bilirubin,Total 1.3 mg/dl (0.2-1.3); Bilirubin,Unconjugated 1.5 mg/dL (0.0-1.1); Blood Urea Nitrogen 9 mg/dl (7-17); Calcium 9.1 mg/dl (8.4-10.2); Carbon Dioxide 27 mmol/L (22.0-30.0); Chloride 103 mmol/L (98-107); Chol/HDL Ratio 4.5 (1-3.5); Cholesterol 145 mg/dl (140-200); Creatinine Clearance Estimated 103 mL/min (50-200); Estimated Glomerular Filt Rate 109 ml/min (>60); GFR (African American) 131 ML/MIN (>60); Glucose 199 mg/dl (74-100); HDL Cholesterol 32 mg/dl (40-60); Potassium 3.5 mmoL/L (3.5-5.1); Sodium 137 mmol/L (136-145); Total Protein,Serum 7.2 g/dl (6.3-8.2); Triglycerides 113 mg/dl (30-150); VLDL Cholesterol 23 mg/dL (0-40)
[2020-08-19 07:42] LABS: Direct LDL Cholesterol 87.76 mg/dL (100-129)
--- NOTE | 2020-08-19 07:53 | HMH.PNCARD ---
Subjective Date: 08/19/20 Time: 08:00 Principal diagnosis: Chest pain Interval history: 44-year-old female admitted to [facility] with unstable angina and Non-Stemi. Patient underwent left heart catheterization yesterday. Patient did have 3 drug-eluting stents inserted into the LAD. Also left heart catheterization revealed ischemic cardiomyopathy in which had severe LV dysfunction. This would make patient increased risk for cardiac . We are in the process of having a patient fitted for LifeVest. Discussion with patient regarding the benefits of wearing the LifeVest due to her increased risk for sudden due to severe LV dysfunction. Patient verbalized understanding. On an outpatient basis we will obtain an echo in 90 days to determine if her EF has improved. Patient is on appropriate medications such as Entresto and carvedilol to help increase her EF. Patient denies chest pain, tightness or pressure. Patient denies shortness of breath. Patient denies dizziness or palpitations. Patient states overall she is feeling much better and is ready to go home. Advised patient that she does need to stay until LifeVest is placed. Vital signs are stable. quality control tech raw materials reveals sinus rhythm. Due to elevated left ventricular end-diastolic pressure being elevated, patient will need to be on diuretics. Preliminary echo reveals EF 35 to 40%. Trace of mitral valve regurgitation and trace of tricuspid valve regurgitation. Official echo revealed EF 35 to 40%. There is normal left ventricular wall thickness. Left ventricular systolic function is moderately reduced. There is apical akinesis. Inferobasal akinesis. Lateral wall hypokinesis. Will hold off on Life vest at this time. Discussed plan of care with Dr. Davis. Will hold off on Life vest at this time due to EF 35-40%. Discussed importance of taking medications as prescribed. No strenuous activity or lifting until follow-up with cardiac clinic in 1 week. Patient verbalized understanding. Please notify cardiology of any changes in patient status. Thank you for allowing cardiology to participate in the care of this patient. Exam Vital signs and Labs for Last 24 Hours: Temp Pulse Resp BP Pulse Ox 98.5 F 99 H 18 125/75 98 08/19/20 07:39 08/19/20 07:39 08/19/20 07:39 08/19/20 07:39 08/19/20 07:39 Laboratory Results - last 24 hr 08/18/20 10:00: WBC 9.0, RBC 5.05, Hgb 12.4, Hct 41.6, MCV 82.4, MCH 24.6 L, MCHC 29.9 L, RDW 16.4, Plt Count 275, MPV 8.0, Neut % (Auto) 75.8, Lymph % (Auto) 17.9, [place] % (Auto) 4.4, Eos % (Auto) 1.4, Baso % (Auto) 0.4, Neut # (Auto) 6.8, Lymph # (Auto) 1.6, [place] # (Auto) 0.4, Eos # (Auto) 0.1, Baso # (Auto) 0.0 08/18/20 10:00: Sodium 138, Potassium 3.7, Chloride 103, Carbon Dioxide 26, Anion Gap 12.7, BUN 9, Creatinine 0.60, Estimated Creat Clear 103, Estimated GFR 109, Est GFR ( Amer) 131, Glucose 363 H, Calcium 9.6, Troponin I 0.07 H 08/18/20 11:00: Chlamy pneumoniae PCR Not detected, Adenovirus (PCR) Not detected, B. pertussis DNA (PCR) Not detected, Coronavirus OC43 (PCR) Not detected, Coronavirus HKU1 (PCR) Not detected, Coronavirus 229E (PCR) Not detected, SARS-CoV-2 (PCR) Not detected, Coronavirus NL63 (PCR) Not detected, Human Metapneumovir PCR Not detected, Influenza A (H1) PCR Not detected, Influ A (H1N1/09) PCR Not detected, Influenza A (H3) PCR Not detected, Influenza Type A (PCR) Not detected, Influenza Type B (PCR) Not detected, M. pneumoniae (PCR) Not detected, Parainfluenza 1 (PCR) Not detected, Parainfluenza 2 (PCR) Not detected, Parainfluenza 3 (PCR) Not detected, Parainfluenza 4 (PCR) Not detected, RSV (PCR) Not detected, Entero/Rhino (PCR) Not detected 08/18/20 13:58: Activated Clotting Time 396 H* 08/18/20 20:24: POC Glucose 280 H 08/19/20 05:51: POC Glucose 237 H 08/19/20 06:33: WBC 10.6, RBC 4.72, Hgb 11.5 L, Hct 38.3, MCV 81.2, MCH 24.5 L, MCHC 30.1 L, RDW 16.6, Plt Count 277, MPV 9.5, Neut % (Auto) 78.5, Lymph % (Auto) 16.
--- NOTE | 2020-08-19 10:13 | P.DS_ITS ---
General - General Admission date:: 08/18/20 Discharge date: 08/19/20 HPI HPI: This is a 44-year-old female presented to the emergency department with some bilateral shoulder discomfort. Patient states that she has a history of CAD and stenting in the past. Her first time she had a heart issue, she was having some bilateral shoulder pain. The patient states that today she had similar symptoms. It is a dull nagging pain in both of her shoulders. She states that it is radiating back and forth. It is worse with movement. Patient states that she was attempting to lift her large dog yesterday night when she first had the symptoms. She denies any associated shortness of breath. She is not having any chest tightness at this time. No palpitations. No hemoptysis. She denies any headache or change in vision. No focal weakness. No abdominal pain or vomiting. Above note per ER. This is a 44-year-old white female who presented to the emergency department with complaints of bilateral shoulder pain. She states that this started yesterday when she was trying to lift her large dog. it started in her neck and then radiated across her bilateral shoulders and was a nagging, dull pain. She states then it radiated down both of her arms and into her fingertips making them feel numb and like they were burning. She also complains of having burning in her chest like indigestion. This is associated with shortness of breath and nausea. She denies any diaphoresis. Her symptoms persisted overnight and she came into the emergency department this morning. She has known coronary artery disease with stenting to her LAD in June 2019 with the same symptoms she is experiencing now. She states that she is profoundly short of breath and this significantly worsens when she walks or exerts herself. The shortness of breath does improve with rest. However, she does get pretty short of breath when she is just speaking to me today. Her initial troponin is elevated at 0.07. She denies any fever, chills, vomiting, diarrhea, PND or orthopnea. Above note per cardiology... Patient taken to bolt labeler - results as noted. ANGIOGRAPHIC RESULTS The left main artery Normal The left anterior descending artery Initially was ostially occluded with no collateralization from the circumflex artery or right coronary artery. Following stenting the ostial proximal mid segments were widely patent with excellent inline flow. This stents extended into the proximal portion of the distal LAD and were also widely patent. Distal to the last stent the LAD was atretic as it wraps the apex yet still had inline NASRA-3 flow The circumflex artery Codominant normal with mild luminal irregularities The right coronary artery Codominant and patent with mild 10% luminal irregularities The RODRIGUEZ ventriculogram reveals Severe dilatation with anterior wall akinesis estimated ejection fraction less than 30% The left ventricular end-diastolic pressure 25 mmHg IMPRESSION Acute on chronically occluded LAD as described above Successful percutaneous revascularization of the ostial proximal mid and proximal portion of the distal LAD all in a contiguous manner with 3 drug-eluting stents Persistent severe distal LAD disease with diffuse distal vasculopathy which is not appropriate for percutaneous or surgical revascularization Severe regional wall motion abnormality with severely reduced ejection fraction Elevated LVEDP PLAN 1. Continue Plavix and aspirin 2. Patient is once again strongly encouraged to immediately discontinue tobacco products 3. LDL less than 55 4. Start Entresto plus carvedil
[2020-08-19 10:42] LABS: Hemoglobin A1C 10.9 % (4.0-6.0)
[2020-08-19 12:40] LABS: POC Glucose,Bedside 229 (70-110)
--- NOTE | 2020-08-19 13:09 | PC.NURSE ---
Spoke with [facility] in [facility]. Most medications have been matched w/ [facility] $4 [facility]. Two new medications (Farxiga and Entresto) cost $500+. Soham from pharmacy is communicating w/ Dr Soliz office to see if pt can receive samples of these meds until pt's Medicaid approval some time next week.
== END 2020-08-19 13:55 | disposition home or self-care (01) ==
LOC: ER 11:50 → CATHLAB 11:54 → 2ND 13:32
PROVIDERS: Internal Medicine; Internal Medicine Adolescent Medicine; Nurse Practitioner Family; Admitting Provider Internal Medicine Adolescent Medicine; Emergency Provider Emergency Medicine; PCP Family Medicine; Visit Provider Internal Medicine Adolescent Medicine
DX: I25.10 Atherosclerotic heart disease of native coronary artery without angina pectoris (principal); I21.4 Non-ST elevation (NSTEMI) myocardial infarction; Z79.02 Long term (current) use of antithrombotics/antiplatelets; E11.9 Type 2 diabetes mellitus without complications; I10 Essential (primary) hypertension; Z95.5 Presence of coronary angioplasty implant and graft; Z72.0 Tobacco use; I25.5 Ischemic cardiomyopathy; I25.2 Old myocardial infarction; Z91.02 Food additives allergy status; Z91.018 Allergy to other foods; Z88.8 Allergy status to other drugs, medicaments and biological substances; Z79.899 Other long term (current) drug therapy
CPT/HCPCS: 36415; 71045; 80048; 80061; 80076; 82962; 83036; 84484; 85025; 85347; 87581; 87633; 87798; 92928; 93005; 93306; 93458; 99152; 99153; 99284; C1725; C1760; C1769; C1876; C9600; G0378; J1644; J2405; Q9967

== ENCOUNTER → 2020-08-25 14:31 | Outpatient (CLI) | payer OTHER, SELFPAY ==
[2020-08-25 14:51] LABS: Hematocrit 40.7 % (37.0-47.0)
[2020-08-25 14:59] LABS: Blood Urea Nitrogen 17 mg/dl (7-17); Estimated Glomerular Filt Rate 78 ml/min (>60); GFR (African American) 94 ML/MIN (>60); Hemoglobin A1C 10.8 % (4.0-6.0)
== END ==
PROVIDERS: Visit Provider Internal Medicine
DX: I20.0 Unstable angina (principal)
CPT/HCPCS: 36415; 82565; 83036; 84520; 85014

== ENCOUNTER 2020-08-31 17:19 | Inpatient (IN) | payer OTHER, SELFPAY ==
[2020-08-31] VITALS (29 sets, daily range): BP systolic 140–176; BP diastolic 73–112; PULSE 65–99; RESP 11–23; TEMP 36.4–36.8; O2SAT 94–100; BMI 42.2; BMI 41.0
--- NOTE | 2020-08-31 17:18 | ECG_ITS ---
APPROVED REPORT Exam: Resting ECG HR:73 bpm ECG Measurements Heart Rate 73 AXES KS 136 P 29 QRSd 88 QRS -13 QT 414 T 71 QTc 456 Conclusion Normal sinus rhythm Low voltage QRS Septal infarct, age undetermined Abnormal ECG Electronically signed by : Selvin Valente, 09/02/2020 11:43:26
--- NOTE | 2020-08-31 17:26 | XR_ITS ---
PROCEDURE: XR CHEST PORTABLE CLINICAL HISTORY: cp Chest pain COMPARISON: CR CXR1 CHEST-PORTABLE from 12/14/2014 CR XR CHEST 2V from 06/29/2019 CR XR CHEST PORTABLE from 08/18/2020 FINDINGS: The cardiomediastinal silhouette and pulmonary vascularity are within normal limits. The lungs are clear without infiltrates, suspicious nodules, or pleural effusions. No acute bony abnormalities. IMPRESSION: No acute findings. Dictated by: Gen Owens MD 08/31/2020 19:27 Gen Owens MD in [facility] 08/31/2020 19:27
--- NOTE | 2020-08-31 17:27 | HMH.EDGENADL ---
ED Disposition Condition on Discharge: Good Time of Disposition: 20:07 - Critical Care Critical Care Time: No <Ron Campos - Last Filed: 08/31/20 20:08> <Marbin Perkins - Last Filed: 09/01/20 03:20> Clinical Impression: Nausea, Epigastric abdominal pain, Unstable angina pectoris, Elevated troponin Chest pain Qualifiers: Chest pain type: unspecified Qualified Code(s): R07.9 - Chest pain, unspecified Disposition: Admitted as Observation Attestation: On 08/31/20, the high probability of a clinically significant, sudden or life threatening deterioration of the following system(s) required my full and direct attention, intervention and personal management. The time I documented below is in addition to time spent performing reported procedures but includes the following listed in this critical care notation. Medical Decision Making - Dameon Inquiry Pt receiving controlled substance: No - Lab Data Lab results reviewed: Yes: I reviewed the patient's lab results. Result diagrams: 08/31/20 17:31 08/31/20 17:31 - Radiology Data #1 Image(s): Chest Image Reviewed: Yes I reviewed the patient's radiology results, Yes I reviewed the patient's radiology image Preliminary Findings: Normal/NAD - ECG Data Tracing #1 ECG initial impression date: 08/31/20 ECG initial impression time: 17:20 - BHARTI Score for Non-Stemi Age of Patient: 40-49 years old Heart Rate: 70-89 bpm Systolic Blood Pressure: 140-159 mmHg Serum Creatinine: 0.80-1.19 mg/dl CHF Killip Class: I-No CHF Other Risk Factors: None Non-Stemi Risk Score: 65 <Ron Campos - Last Filed: 08/31/20 20:08> - Lab Data Result diagrams: 08/31/20 17:31 08/31/20 17:31 - Physician Consults Physician Consulted: ana Reason -: Admission Additional Consult: adi Reason -: Pt condition <Marbin Perkins - Last Filed: 09/01/20 03:20> Vital Signs: 08/31/20 17:20 08/31/20 17:21 08/31/20 17:30 Temperature 98.3 F Temperature Source Oral Pulse Rate 80 86 Pulse Rate [Left Radial] 78 Respiratory Rate 18 17 21 Blood Pressure Blood Pressure [Right Arm] 154/90 H Blood Pressure Mean Blood Pressure Mean [Right Arm] 111 Blood Pressure Source Blood Pressure Source [Right Arm] Automatic Cuff Blood Pressure Position Blood Pressure Position [Right Arm] Sitting 02 Sat by Pulse Oximetry 98 98 99 Oxygen Delivery Method Room Air 08/31/20 17:32 08/31/20 17:45 08/31/20 18:00 Temperature Temperature Source Pulse Rate 79 74 71 Pulse Rate [Left Radial] Respiratory Rate 15 18 16 Blood Pressure 161/89 H 163/91 H Blood Pressure [Right Arm] Blood Pressure Mean 113 115 Blood Pressure Mean [Right Arm] Blood Pressure Source Blood Pressure Source [Right Arm] Blood Pressure Position Blood Pressure Position [Right Arm] 02 Sat by Pulse Oximetry 98 98 98 Oxygen Delivery Method 08/31/20 18:15 08/31/20 18:30 08/31/20 18:31 Temperature Temperature Source Pulse Rate 94 H 69 71 Pulse Rate [Left Radial] Respiratory Rate 19 19 21 Blood Pressure 168/88 H Blood Pressure [Right Arm] Blood Pressure Mean 114 Blood Pressure Mean [Right Arm] Blood Pressure Source Blood Pressure Source [Right Arm] Blood Pressure Position Blood Pressure Position [Right Arm] 02 Sat by Pulse Oximetry 99 97 100 Oxygen Delivery Method 08/31/20 18:45 08/31/20 19:05 08/31/20 19:06 Temperature Temperature Source Pulse Rate 67 66 Pulse Rate [Left Radial] Respiratory Rate 13 16 Blood Pressure 162/84 H Blood Pressure [Right Arm] Blood Pressure Mean 110 Blood Pressure Mean [Right Arm] Blood Pressure Source Blood Pressure Source [Right Arm] Blood Pressure Position Blood Pressure Position [Right Arm] 02 Sat by Pulse Oximetry 97 94 L 96 Oxygen Delivery Method 08/31/20 19:15 08/31/20 19:30 08/31/20 19:31 Temperature Temperature Source P
[2020-08-31 17:30] LABS: Adenovirus,PCR Not Detected (NotDetected); Bordetella Pertussis Not Detected (NotDetected); Coronavirus 19, PCR Not Detected (NotDetected); Coronavirus 229E Not Detected (NotDetected); Coronavirus NL63 Not Detected (NotDetected); Coronavirus OC43 Not Detected (NotDetected); Coronovirus HKU1,PCR Not Detected (NotDetected); Human Metapneumovirus Not Detected (NotDetected); Influenza A, PCR Not Detected (NotDetected); Influenza AH1, 2009 Not Detected (NotDetected); Influenza AH1, PCR Not Detected (NotDetected); Influenza AH3,PCR Not Detected (NotDetected); Influenza B, PCR Not Detected (NotDetected); Parainfluenza 1, PCR Not Detected (NotDetected); Parainfluenza 2, PCR Not Detected (NotDetected); Parainfluenza 3, PCR Not Detected (NotDetected); Parainfluenza 4, PCR Not Detected (NotDetected); Respiratory Syncytial Virus Not Detected (NotDetected); Rhinovirus/Enterovirus Not Detected (NotDetected)
[2020-08-31 17:31] LABS: Chlamydophila Pneumoniae, PCR Not Detected (NotDetected); Mycoplasma Pneumoniae, PCR Not Detected (NotDetected)
[2020-08-31 17:45] LABS: Chloride 103 mmol/L (98-107); Potassium 4.5 mmoL/L (3.5-5.1); Sodium 136 mmol/L (136-145)
[2020-08-31 17:47] LABS: Basophils % 0.4 % (0.1-2.0); Blood Urea Nitrogen 21 mg/dl (7-17); Creatinine Clearance Estimated 77 mL/min (50-200); Eosinophils # 0.1 K/mm3 (0.0-0.4); Eosinophils % 1.1 % (0.1-12.0); Estimated Glomerular Filt Rate 78 ml/min (>60); GFR (African American) 94 ML/MIN (>60); Hematocrit 41.2 % (37.0-47.0); Hemoglobin 12.7 g/dL (12.2-16.2); Lymphocytes # 1.2 K/mm3 (0.7-4.5); Lymphocytes % 11.1 % (10-50); Mean Corpuscular HGB Conc 30.7 g/dL (31.8-35.4); Mean Corpuscular Hemoglobin 24.6 pg (27.0-31.2); Mean Corpuscular Volume 80.2 fl (81-99); Monocytes # 0.5 K/mm3 (0.1-1.0); Neutrophils # 9.2 K/mm3 (1.8-7.8); Neutrophils % 83.3 % (37.0-80.0); Platelet Count 328 K/mm3 (142-424); Red Blood Count 5.13 M/mm3 (4.20-5.40); White Blood Count 11.1 K/mm3 (4.8-10.8)
[2020-08-31 17:48] LABS: Alanine Aminotransferase 34 U/L (12-78); Albumin Level 4.4 g/dl (3.5-5.0); Albumin/Globulin Ratio 1.1 (1.1-1.8); Alkaline Phosphatase 159 U/L (38-126); Anion Gap 15.5 mEq/L (5-15); Aspartate Amino Transferase 28 U/L (14-36); Bilirubin,Total 0.9 mg/dl (0.2-1.3); Calcium 9.8 mg/dl (8.4-10.2); Carbon Dioxide 22 mmol/L (22.0-30.0); Globulin 3.9 g/dL (1.3-3.2); Total Protein,Serum 8.3 g/dl (6.3-8.2)
[2020-08-31 17:49] LABS: Glucose 485 mg/dl (74-100)
--- NOTE | 2020-08-31 18:00 | PC.NURSE ---
notified ER of critical glucose
[2020-08-31 18:02] LABS: Troponin I < 0.01 ng/ml (0.00-0.034)
--- NOTE | 2020-08-31 18:57 | PC.NURSE ---
Patient reports pain is 8/10, MD notified. Awaiting further orders.
--- NOTE | 2020-08-31 19:10 | PC.NURSE ---
Received report from day nurse at this time. was told in report by both md and and nursing staff that patient had received all she needed and that she wouldn't be getting anything else. waiting on 2nd troponin and discharge per md.
--- NOTE | 2020-08-31 19:30 | PC.NURSE ---
patient continues to complain of mid epigastric chest discomfort. discussed with md. requested to be allowed to at least give her pepcid and reglan and add lipase and amylase lab work to her order set if he was going to turn her over to dr wei. he said fine, do whatever.
[2020-08-31 20:17] LABS: Amylase 81 U/L (30-110); Lipase 156 U/L (23-300)
[2020-08-31 20:26] LABS: Troponin I 0.72 ng/ml (0.00-0.034)
--- NOTE | 2020-08-31 20:26 | PC.NURSE ---
received critical troponin call from lab. notified dr wei. no additional orders at this time.
--- NOTE | 2020-08-31 20:45 | PC.NURSE ---
Shruthi Valente at this time.
--- NOTE | 2020-08-31 20:54 | PC.NURSE ---
Maddie speaking with Sidra at this time.
--- NOTE | 2020-08-31 21:31 | PC.NURSE ---
PT ARRIVED TO FLOOR VIA W/C FROM ED W/STAFF AT 2127.
[2020-08-31 22:44] LABS: POC Glucose,Bedside 325 (70-110)
[2020-09-01] VITALS (19 sets, daily range): BP systolic 127–174; BP diastolic 72–97; PULSE 80–100; RESP 14–20; TEMP 36.5–37.2; O2SAT 91–98; BMI 40.8
--- NOTE | 2020-09-01 | IR_ITS ---
APPROVED REPORT Patient Location: Inpatient Custom Miller: ALICIA Ruiz RT (R) PROCEDURES Left heart catheterization Left ventriculogram Selective coronary angiogram INDICATION Coronary artery disease, Cute non-ST elevation myocardial infarction Informed consent was obtained prior to the procedure. COMPLICATIONS None Estimated Blood Loss: Less than 10 mls TECHNIQUE One percent lidocaine was used to anesthetize the right groin. The right femoral artery was accessed via the Seldinger technique. A 4-Danish sheath was placed in the right femoral artery. The JL-4 and JR-4 catheter was also used to perform left heart catheterization left ventriculogram and selective coronary angiogram. At the end of the procedure the patient was transferred to the post-op holding area in stable condition for arterial sheath removal. ANGIOGRAPHIC RESULTS The left main artery Normal The left anterior descending artery Ostially occluded throughout its entire course The circumflex artery Nondominant with 30% stenosis in the first obtuse marginal artery and 30% stenosis and a smaller second obtuse marginal artery The right coronary artery Large dominant with mild luminal irregularities in the proximal and mid segment with tandem 30% and 30 to 40% stenoses in the distal segment The RODRIGUEZ ventriculogram reveals Dilated ventricle anterior wall hypokinesis estimate ejection fraction appears less than 35% The left ventricular end-diastolic pressure Severely elevated at 35 mmHg IMPRESSION Occluded LAD with no collateralization Large regional wall motion abnormality with reduced ejection fraction Severely elevated LVEDP PLAN 1. At this time medical management for her coronary artery disease 2. Echocardiogram to determine if ejection fraction is less than 35%, if so, patient requires LifeVest prior to being discharged home 3. Patient requires much more aggressive medical therapy. Currently she is hypertensive and tachycardic. She should be on Entresto as well as a large dose of carvedilol combined with diuretics 4. LDL less than 55 5. Aggressive control of diabetes 6. Aggressive risk factor modification 7. If ejection fraction remains low in 40 days patient will be a candidate for an AICD given this current myocardial infarction with no placement of stents Electronically signed by : Michele Patel, 09/01/2020 12:03:20
--- NOTE | 2020-09-01 00:28 | PC.NURSE ---
She is A&Ox4. She reports pain in bilateral shoulders. She has a nitro patch on her left upper chest. She ambulates independently. She took a shower and is currently NPO.
[2020-09-01 04:40] LABS: Basophils % 0.3 % (0.1-2.0); Eosinophils # 0.1 K/mm3 (0.0-0.4); Hematocrit 38.6 % (37.0-47.0); Hemoglobin 12.2 g/dL (12.2-16.2); Lymphocytes # 2.1 K/mm3 (0.7-4.5); Lymphocytes % 18.5 % (10-50); Mean Corpuscular HGB Conc 31.6 g/dL (31.8-35.4); Mean Corpuscular Volume 78.9 fl (81-99); Monocytes # 0.7 K/mm3 (0.1-1.0); Monocytes % 5.8 % (1.7-9.3); Neutrophils # 8.4 K/mm3 (1.8-7.8); Neutrophils % 74.4 % (37.0-80.0); Platelet Count 333 K/mm3 (142-424); Red Blood Count 4.89 M/mm3 (4.20-5.40); Red Cell Distribution Width 16.2 % (11.5-17.5); White Blood Count 11.3 K/mm3 (4.8-10.8)
[2020-09-01 04:45] LABS: Anion Gap 11.9 mEq/L (5-15); Blood Urea Nitrogen 19 mg/dl (7-17); Calcium 9.4 mg/dl (8.4-10.2); Carbon Dioxide 24 mmol/L (22.0-30.0); Chloride 105 mmol/L (98-107); Creatinine Clearance Estimated 77 mL/min (50-200); Estimated Glomerular Filt Rate 78 ml/min (>60); GFR (African American) 94 ML/MIN (>60); Glucose 180 mg/dl (74-100); Potassium 3.9 mmoL/L (3.5-5.1); Sodium 137 mmol/L (136-145)
[2020-09-01 05:17] LABS: POC Glucose,Bedside 178 (70-110)
[2020-09-01 05:19] LABS: Activated Partial Thrombo Time 21.9 seconds (22.8-30.6); Prothrombin Time 10.7 seconds (10.1-12.5)
--- NOTE | 2020-09-01 07:52 | HMH.PHAVTE ---
[facility] Pharmacy VTE Monitoring - Patient Demographics Admission date: 09/01/20 Report Date: 09/01/20 Time: 07:52 Allergies/Adverse Reactions: Patient Allergies coconut Allergy (Severe, Verified 08/25/20 15:00) FACIAL SWELLING red dye Allergy (Severe, Verified 08/25/20 15:00) facial/throat swelling strawberry Allergy (Severe, Verified 08/25/20 15:00) FACIAL/THROAT SWELLING codeine Allergy (Mild, Verified 08/25/20 15:00) Vomiting tomato Allergy (Unknown, Verified 08/25/20 15:00) Cough AND Heartburn onion Allergy (Verified 08/25/20 15:00) Vomiting lisinopril Adverse Reaction (Intermediate, Verified 08/25/20 15:00) JOBY COUGH hydrocodone [From Vicodin] Adverse Reaction (Verified 08/25/20 15:00) Vomiting oxycodone [From Percocet] Adverse Reaction (Verified 08/25/20 15:00) Vomiting Height: 1.63 m Weight: 108.409 kg Patient Problems: Current Active Problems Chest pain (Acute) Nausea (Acute) Epigastric abdominal pain (Acute) Unstable angina pectoris (Acute) Elevated troponin (Acute) - VTE Risk Labs: VTE Related Lab Results Hgb 12.2 g/dL (12.2-16.2) 09/01/20 04:20 Hct 38.6 % (37.0-47.0) 09/01/20 04:20 Plt Count 333 K/mm3 (142-424) 09/01/20 04:20 PT 10.7 seconds (10.1-12.5) 09/01/20 04:20 INR 0.90 (0.9-1.1) 09/01/20 04:20 APTT 21.9 seconds (22.8-30.6) L 09/01/20 04:20 BUN 19 mg/dl (7-17) H 09/01/20 04:20 Creatinine 0.80 mg/dl (0.52-1.04) 09/01/20 04:20 Estimated Creat Clear 77 mL/min (50-200) 09/01/20 04:20 Was VTE Risk Assessment Performed: Yes VTE Score: 3 VTE Risk Level: Low Risk Clinical Trial Participant: No - Prophylaxis VTE Prophylaxis Ordered?: Yes Types of VTE Prophylaxis: TEDS Knee High
--- NOTE | 2020-09-01 08:41 | CA_ITS ---
APPROVED REPORT EXAM: Comprehensive 2D, Doppler, and color-flow Echocardiogram Rehab Services Aide: BIJU Jordan, RVS Ht: 5 ft 4 in Wt: 239lbs BSA: 2.11 HR: 82 bpm BP: 140/73 mmHg Indications: CAD S/P stents, epigastric pain with elevated troponin, GERD Echo Enhancing Agent Comments: Technically difficult exam due to large body habitus 2D Dimensions LVDs 5.77 cm LA Volume 52.10 mL LVOT 1.93 cm (M/F) 1.5-2.5 LA Volume Index 24.10 mL/m2 (M/F) 16-34 M-Mode Dimensions RVDd 2.04 cm (0.9-2.6) LA Diam 3.96 cm (1.9-4.0) LVDd 4.74 cm (3.5-5.7) Ao Diam 2.94 cm (2.0-3.7) LVDs 3.98 cm (3.5-5.7) IVSd 1.40 cm (0.6-1.1) PWd 1.08 cm (0.6-1.1) EF (Teich) 34.80% EPSs 0.97 cm FS 16.70% EDV (Teich) 120.50 mL TAPSE 1.60 (<1.7) ESV (Teich) 78.60 mL LV Diastology E Decel Time 173.00 (160-240 msec) E/A Ratio 1.24 MED E' 5.60 (< 7 cm/sec) MED A' 11.00 cm/s E'/MED E' Ratio 15.34 (>14) LAT E' 6.00 (<10 cm/sec) LAT A' 13.60 cm/s E/LAT E' Ratio 14.32 (>14) Aortic Valve LVOT Max 95.00 (70-110 cm/s) LVOT VTI 18.00 cm AoV Peak Tomás. 124.00 (50-130 cm/s) AO Peak GR. 6.20 mmHg AO Mean GR. 3.10 (<5 mmHg) AO VTI 22.71 (18-25 cm) JUANY (VTI) 2.32 (2.5-4.5 cm2) Mitral Valve MV E Max Tomás. 86.00 (40-130 cm/s) MV A Velocity 69.00 (40-130 cm/s) E/A Ratio 1.24 MV Decel. Time 173.00 (160-240 ms) MV PHT 51.00 ms Pulmonary Valve PV Peak Velocity 82.00 (50-150 cm/s) Tricuspid Valve TR P. Velocity 155.00 cm/s RAP Estimate 10.00 mmHg RVSP 19.60 mmHg Left Ventricle Left atrium is mildly enlarged, left ventricle is normal size, mild concentric left ventricular hypertrophy, visually estimated ejection fraction 30%, there is marked hypokinesis involving mid to distal septum, anterior, anterior apical wall. Grade 1 diastolic dysfunction seen with tissue Doppler evidence of raise left atrial pressure. Right Ventricle Right atrium and right ventricle are normal size and contractility. Aortic Valve Aortic valve is minimally thickened and fibrosed. There is no aortic stenosis or aortic insufficiency. Mitral Valve Mitral valve is grossly normal, there is trace mitral regurgitation. Tricuspid Valve Tricuspid valve is grossly normal, there is trace tricuspid regurgitation, tricuspid regurgitation jet velocity is inadequate for calculation of the right ventricular systolic pressure. Pulmonic Valve Pulmonic valve is poorly visualized. Great Vessels Aortic root is normal size. Pericardium No significant pericardial effusion noted. Conclusion 1. Mildly enlarged left atrium, normal left ventricular size, mild concentric left ventricular hypertrophy, visually estimated ejection fraction 30% with segmental wall motion abnormality described above, grade 1 diastolic dysfunction seen with tissue Doppler evidence of raise left atrial pressure. 2. Trace mitral and tricuspid regurgitation. 3. No significant pericardial effusion noted. Electronically signed by : Jerod Elise, 09/01/2020 12:58:33
--- NOTE | 2020-09-01 08:44 | HMH.HP ---
*Admission Date: 09/01/20 *Chief complaint: Chest pain *History of present illness: 44-year-old white female with significant cardiac disease history, recently with LAD stent placement with exceedingly poor catheterization results with multiple vessel disease, small vessel disease and multiple unstented lesions with depressed ejection fraction, who suffered myocardial infarction and the stent placement earlier this month. She has been at home with purportedly enhanced medication intervention with dual antiplatelet therapy, statin therapy, beta-blockade, JOBY inhibitor and SGLT2 inhibitor therapy but apparently has not been very compliant with her diet as yesterday she was eating pizza and began to have heartburn sensations. The heartburn sensations transitioned into a pressure-like sensation with diaphoresis and she presented to the emergency department where troponin initially was normal but very quickly elevated. Admitted to hospital for further evaluation, observation, telemetry monitoring and cardiology consultation. [facility] History I have reviewed the patient's past medical history: Yes Medical History: Reports:: Anxiety, Arrhythmia, Atherosclerotic Heart Disease, Coronary Artery Disease, Diabetes Mellitus Type 2, Gastroesophageal Reflux Disease(GERD), Hyperlipidemia, Hypertension, Myocardial Infarction, Palpitations Denies:: Cancer, Diabetes Mellitus Type 1, MRSA *Have you ever received a pneumonia vaccine?: Yes *Have you received a flu vaccine this season?: No Other Medical History: Reports: Arthritis (RA), Fibromyalgia Other Surgeries: Yes: Cardiac Catheterization, Coronary Stent, (x2), Dilation and Curettage (x2), Tubal Ligation Amputation: No Fractures: Yes (L rodriguez, R foot, toes, 3 r ribs, l hand crushed, r wrist (x2)) - *Social History Last grade of school completed: Some college Smoking Status: Former smoker Tobacco Type: cigarettes # Packs/Day (cigarettes): 1 #Yrs smoked (if former smoker): 32 Alcohol Intake: never Alcohol Intake Frequency:: holidays/special occasions only Substance Use Type: crack/cocaine, painkillers *Occupational Status:: other Housing: house Household Members: spouse *Travel in the last 8 weeks: None - Psychiatric History Pschychiatric History:: Reports:: Anxiety Family Hx:: Cancer, Diabetes, Heart Attack, Hyperlipidemia, Hypertension, Stroke, Substance abuse, Alcoholism, Mental illness Review of Systems - Review of Systems Review of systems:: pertinent systems reviewed and negative unless documented below Meds Home Medications Medication Instructions Recorded Confirmed Type Aspirin [Aspirin 81mg chewable 81 mg PO HS 08/18/20 08/31/20 History tab] Citalopram Hydrobromide 20 mg PO DAILY 08/18/20 08/31/20 History [Citalopram 20mg Tablet] Furosemide [Lasix 20mg tab] 20 mg PO DAILY 30 Days #30 tab 08/19/20 08/31/20 Rx Pantoprazole Sodium [Protonix 40mg 40 mg PO DAILY 30 Days #30 08/19/20 08/31/20 Rx tablet] tablet. Sacubitril/Valsartan [Entresto 1 each PO BID 30 Days #60 tab 08/19/20 08/31/20 Rx 24/26mg Tablet] carvediloL [Coreg 6.25mg 6.25 mg PO BID 30 Days #60 tab 08/19/20 08/31/20 Rx Tablet] spironolactone 25 mg tablet 25 mg PO DAILY #30 tab 08/25/20 08/31/20 Rx Dapagliflozin Propanediol [Farxiga] 10 mg PO DAILY 08/31/20 08/31/20 History Metformin HCl [Glucophage Xr] 500 mg PO BID 08/31/20 08/31/20 History Multivit with Calcium,Iron,Min 1 each PO HS 08/31/20 08/31/20 History [Women's Daily Formula] Allergies Allergy/AdvReac Type Severity Reaction Status Date / Time coconut Allergy Severe FACIAL Verified 08/25/20 15:00 SWELLING red dye Allergy Severe facial/throat Verified 08/25/20 15:00 swelling strawberry Allergy Severe FACIAL/THROAT Verified 08/25/20 15:00 SWELLING codeine Allergy Mild Vomiting Verified 08/25/20 15:00 tomato Allergy Unknown Cough AND Verified 08/25/20 15:00 Heartburn onion Allergy Vomiting Verified
--- NOTE | 2020-09-01 09:46 | HMH.PHAINT ---
home medication list verified using list from [facility], a list from the cardiology offices here at [facility] and after speaking with patient
[2020-09-01 11:08] LABS: Chol/HDL Ratio 4.2 (1-3.5); Cholesterol 167 mg/dl (140-200); HDL Cholesterol 40 mg/dl (40-60); Triglycerides 128 mg/dl (30-150); VLDL Cholesterol 26 mg/dL (0-40)
[2020-09-01 11:19] LABS: Direct LDL Cholesterol 99.83 mg/dL (100-129)
--- NOTE | 2020-09-01 11:20 | HMH.CNCARD ---
<Cinthia Armenta - Last Filed: 09/01/20 11:20> History of Present Illness Consult date: 09/01/20 Requesting physician: Selvin Valente Consult reason: chest pain Chief complaint: chest pain Additional Medical History:: [facility] 08.18.2020: Acute on chronically occluded LAD as described above Successful percutaneous revascularization of the ostial proximal mid and proximal portion of the distal LAD all in a contiguous manner with 3 drug-eluting stents Persistent severe distal LAD disease with diffuse distal vasculopathy which is not appropriate for percutaneous or surgical revascularization Severe regional wall motion abnormality with severely reduced ejection fraction Elevated LVEDP PLAN 1. Continue Plavix and aspirin 2. Patient is once again strongly encouraged to immediately discontinue tobacco products 3. LDL less than 55 4. Start Entresto plus carvedilol as patient can hemodynamically tolerate and uptitrate as tolerated 5. Patient will benefit from loop diuretics to decrease EDP 6. Prior to discharge home patient should be fitted for a LifeVest. Her LV dysfunction is severely reduced in the anterior wall has a suggestion of possible aneurysmal dilatation 7. Cardiac rehabilitation once hemodynamically stable 8. Echocardiogram 9. Supportive care History of present illness: This is a 44-year-old white female who presented to the emergency department with complaints of chest pain. She does have a significant history of coronary artery disease with recent stenting to her LAD. The patient states that she was eating pizza last night when she had sudden onset of pain. She states that the pain starts in the left shoulder area and radiates down her left arm and into her chest. This is a pressure sensation and feels like she is having heartburn. The patient states that this is associated with shortness of breath and nausea. The pain is severe. Nothing helps to improve the pain. It is worse with exertion. The patient has been medically noncompliant in the past. Dr. Patel and the patient had a long discussion today about her medical noncompliance. She states that she has been taking her aspirin and Plavix every day and she had a bottle of Plavix in the room with her. She has also been taking her Entresto but she is about to run out of refills on her medications but up until this point she has been taking her medicines per the patient's report. She states that her blood sugars have been exceedingly high and she states that she has been taking her medications for this as well. She denies any fever, chills, vomiting, diarrhea, PND or orthopnea. Her initial troponin was negative. Her second troponin was 0.72 and her third troponin was 20.60 consistent with a non-ST elevation myocardial infarction. [facility] History I have reviewed the patient's past medical history: Yes Medical History: Reports:: Anxiety, Arrhythmia, Atherosclerotic Heart Disease, Coronary Artery Disease, Diabetes Mellitus Type 2, Gastroesophageal Reflux Disease(GERD), Hyperlipidemia, Hypertension, Myocardial Infarction, Palpitations Denies:: Cancer, Diabetes Mellitus Type 1, MRSA *Have you ever received a pneumonia vaccine?: Yes *Have you received a flu vaccine this season?: No Other Medical History: Reports: Arthritis (RA), Fibromyalgia Other Surgeries: Yes: Cardiac Catheterization, Coronary Stent, (x2), Dilation and Curettage (x2), Tubal Ligation Amputation: No Fractures: Yes (L rodriguez, R foot, toes, 3 r ribs, l hand crushed, r wrist (x2)) - *Social History Last grade of school completed: Some college Smoking Status: Former smoker Tobacco Type: cigarettes # Packs/Day (cigarettes): 1 #Yrs smoked (if former smoker): 32 Alcohol Intake: never Alcohol Intake Frequency:: holidays/special occasions only Substance Use Type: crack/cocaine, painkillers *Occupational Status:: other Housing: house Household Members: spouse *Travel in the last 8 weeks: None - Psychiatric His
--- NOTE | 2020-09-01 11:53 | PC.NURSE ---
Pt is currently in [facility]. Clipped and got consent prior to going.
[2020-09-01 12:52] LABS: POC Glucose,Bedside 236 (70-110)
--- NOTE | 2020-09-01 15:45 | PC.NURSE ---
Did call and get order for diabetic diet [address] Valente
[2020-09-01 16:19] LABS: POC Glucose,Bedside 295 (70-110)
--- NOTE | 2020-09-01 17:47 | PC.NURSE ---
Pt is alert and oriented x 4. RR even and unlabored. Remains on RA. VSS. Has been tachycardic when getting up to bathroom, up to 120 but then goes back down into low 100's. R wrist dsg is cdi and R groin site is cdi as well. Meds per aug. FS achs and ssi. Pt can make needs known and has been NSR on tele. [facility]
--- NOTE | 2020-09-01 17:49 | PC.NURSE ---
Pt is to be medically managed and no stents were place during heart cath. CB in reach. MX continues. Bp has been slightly elevated, coreg has been increased.
[2020-09-01 20:32] LABS: POC Glucose,Bedside 251 (70-110)
[2020-09-02] VITALS (7 sets, daily range): BP systolic 130–170; BP diastolic 75–90; PULSE 76–98; RESP 16–20; TEMP 36.6–36.9; O2SAT 96–100; BMI 40.8; BMI 40.6
--- NOTE | 2020-09-02 05:10 | PC.NURSE ---
shift summary right radial and femoral cath site dressing clean dry and intact, no hematoma present. monitor and storage bin tender has shown sr. denies soa, nausea or vomiting. breath sounds clear throughout all shift. c/o slight pain to left shoulder treated with tylenol successfully. ambulates independently to [id number], voiding clear yellow urine.
[2020-09-02 05:31] LABS: POC Glucose,Bedside 146 (70-110)
--- NOTE | 2020-09-02 06:45 | HMH.ACPN2 ---
Internal Medicine - PN: Subj *Date: 09/02/20 *Time: 18:55 Interval history: Ms. Bolaños did well overnight. Has been pain-free. Hemodynamically stable. Blood pressure was somewhat elevated last night however is better controlled this morning. Tolerating p.o. medication and nutrition regimen. Denies nausea, chest pain, shortness of breath. Afebrile. Exam Vital signs and Labs for Last 24 Hours: Temp Pulse Resp BP Pulse Ox 98.1 F 89 16 170/90 H 97 09/02/20 04:00 09/02/20 04:00 09/02/20 04:00 09/02/20 04:00 09/02/20 04:00 Laboratory Results - last 24 hr 09/01/20 04:20: Triglycerides 128, Cholesterol 167, LDL Cholesterol Direct 99.83 L, VLDL Cholesterol 26, HDL Cholesterol 40, Cholesterol/HDL Ratio 4.2 H 09/01/20 12:43: POC Glucose 236 H 09/01/20 16:09: POC Glucose 295 H 09/01/20 20:10: POC Glucose 251 H 09/02/20 05:22: POC Glucose 146 H I & O for Last 24 hours: Intake & Output 08/30/20 08/31/20 09/01/20 09/02/20 23:59 23:59 23:59 23:59 Intake Total 1366 / 1366 667 / 667 Balance 1366 / 1366 667 / 667 Weight 108.976 kg 108.409 kg 108.409 kg Narrative: - Constitutional morbidly obese, obese - *Routine HEENT Exam Head: Present: normocephalic Eye: Present: EOMI, PERRL ENT: Present: mucous membranes moist - *Routine Neck Exam Present: supple. Absent: lymphadenopathy - *Routine Respiratory Exam Present: CTA bilaterally - *Routine Cardiovascular Exam Present: RRR - *Routine Abdominal Exam Present: soft, normoactive bowel sounds, obese. Absent: tenderness - *Routine Extremities Exam Absent: cyanosis, clubbing, edema - *Routine Skin Exam Present: warm. Absent: rash - *Routine Neurological Exam Present: alert, oriented X3 Assessment and Plan (1) Non-STEMI (non-ST elevated myocardial infarction) Status: Acute Category: Medical Code(s): I21.4 - Non-ST elevation (NSTEMI) myocardial infarction (2) ASCVD (arteriosclerotic cardiovascular disease) Status: Acute Category: Medical Code(s): I25.10 - Atherosclerotic heart disease of tribe coronary artery without angina pectoris (3) Epigastric abdominal pain Status: Acute Category: Medical Code(s): R10.13 - Epigastric pain (4) Chronic systolic heart failure Status: Acute Category: Medical Code(s): I50.22 - Chronic systolic (congestive) heart failure (5) HTN (hypertension) Status: Acute Qualifiers: Category: Medical Code(s): I10 - Essential (primary) hypertension (6) Hyperlipidemia Status: Acute Category: Medical Code(s): E78.5 - Hyperlipidemia, unspecified (7) Uncontrolled diabetes mellitus Status: Acute Category: Medical Code(s): E11.65 - Type 2 diabetes mellitus with hyperglycemia (8) Obesity Status: Chronic Qualifiers: Category: Medical Code(s): E66.9 - Obesity, unspecified (9) Stented coronary artery Status: Chronic Category: Surgical Code(s): Z95.5 - Presence of coronary angioplasty implant and graft - Assessment and plan all Dx Assessment and Plan for all problems:: 44-year-old female with in-stent thrombosis, NSTEMI. Symptoms have improved without any further chest pain. Tolerating p.o. regimen and more aggressive blood pressure and heart failure medication regimen. Echo performed, EF approximately 30%. Is awaiting placement of LifeVest prior to being medically stable/appropriate for discharge home. Cardiology consulted on admission. Patient was taken to the [facility] but no intervention given severity of coronary artery disease and recommended medical management. Adjusting blood pressure and heart failure medications. See their note for full recommendations. In regard to her diabetes, has been tolerating sliding scale insulin. Will initiate once daily long-acting insulin tonight with 10 units of insulin glargine. Plan to discharge home on combo of oral regimen along with once daily insulin. Close follow-up in the office setti
[2020-09-02 07:24] LABS: Basophils % 0.4 % (0.1-2.0); Eosinophils # 0.1 K/mm3 (0.0-0.4); Eosinophils % 1.2 % (0.1-12.0); Hematocrit 37.9 % (37.0-47.0); Hemoglobin 11.9 g/dL (12.2-16.2); Lymphocytes # 1.6 K/mm3 (0.7-4.5); Lymphocytes % 16.2 % (10-50); Mean Corpuscular HGB Conc 31.3 g/dL (31.8-35.4); Mean Corpuscular Hemoglobin 25.1 pg (27.0-31.2); Mean Corpuscular Volume 80.1 fl (81-99); Mean Platelet Volume 8.6 fl (7.4-10.4); Monocytes # 0.5 K/mm3 (0.1-1.0); Monocytes % 5.2 % (1.7-9.3); Neutrophils # 7.7 K/mm3 (1.8-7.8); Platelet Count 286 K/mm3 (142-424); Red Blood Count 4.73 M/mm3 (4.20-5.40); Red Cell Distribution Width 16.4 % (11.5-17.5)
[2020-09-02 07:37] LABS: Alanine Aminotransferase 33 U/L (12-78); Albumin Level 3.9 g/dl (3.5-5.0); Albumin/Globulin Ratio 1.1 (1.1-1.8); Alkaline Phosphatase 118 U/L (38-126); Anion Gap 11.3 mEq/L (5-15); Aspartate Amino Transferase 82 U/L (14-36); Bilirubin,Total 1.2 mg/dl (0.2-1.3); Blood Urea Nitrogen 14 mg/dl (7-17); Calcium 9.1 mg/dl (8.4-10.2); Carbon Dioxide 26 mmol/L (22.0-30.0); Chloride 106 mmol/L (98-107); Creatinine Clearance Estimated 137 mL/min (50-200); Estimated Glomerular Filt Rate 68 ml/min (>60); GFR (African American) 82 ML/MIN (>60); Globulin 3.7 g/dL (1.3-3.2); Glucose 146 mg/dl (74-100); Potassium 4.3 mmoL/L (3.5-5.1); Sodium 139 mmol/L (136-145); Total Protein,Serum 7.6 g/dl (6.3-8.2)
--- NOTE | 2020-09-02 09:32 | HMH.DCSUM ---
General - General Admission date:: 08/31/20 Discharge date: 09/02/20 HPI HPI: 44-year-old white female with significant cardiac disease history, recently with LAD stent placement with exceedingly poor catheterization results with multiple vessel disease, small vessel disease and multiple unstented lesions with depressed ejection fraction, who suffered myocardial infarction and the stent placement earlier this month. She has been at home with purportedly enhanced medication intervention with dual antiplatelet therapy, statin therapy, beta-blockade, JOBY inhibitor and SGLT2 inhibitor therapy but apparently has not been very compliant with her diet as yesterday she was eating pizza and began to have heartburn sensations. The heartburn sensations transitioned into a pressure-like sensation with diaphoresis and she presented to the emergency department where troponin initially was normal but very quickly elevated. Admitted to hospital for further evaluation, observation, telemetry monitoring and cardiology consultation. Hospital Course Hospital Course: 44-year-old female admitted for NSTEMI and in-stent thrombosis of LAD stents placed 2 weeks ago. Managed medically. Was taken to [facility] and found to have complete occlusion of LAD to the ostium. Decision made not to recannulate. Cardiology recommended medical management of blood pressure, heart failure, coronary artery disease. Echo obtained showing EF of approximately 30%. Patient meets criteria for LifeVest placement. Additionally will need aggressive management of her chronic conditions including obesity, hyperlipidemia, and diabetes. Was treated with sliding scale insulin during admission requiring less than 20 units daily with fair control of her blood sugar. Decision made to send home with once a day long-acting insulin at night in addition to her Farxiga and Metformin. Been provided. Goal of 10 units nightly of glargine. See medication list for full cardiovascular and hypertensive medications including Plavix, Entresto, carvedilol, and diuretics. Plan for close follow-up next week with patient in our office. Will see cardiology in the coming weeks for follow-up. Patient denies any chest pain or shortness of breath this morning. No nausea or vomiting. Tolerating p.o. intake. Afebrile. Objective Vital signs: Temp Pulse Resp BP Pulse Ox 98.1 F 89 16 170/90 H 97 09/02/20 04:00 09/02/20 04:00 09/02/20 04:00 09/02/20 04:00 09/02/20 04:00 Results Labs on day of discharge: Labs from last 24 hours 09/02/20 09/02/20 09/02/20 06:50 06:50 05:22 WBC 10.0 RBC 4.73 Hgb 11.9 L Hct 37.9 MCV 80.1 L MCH 25.1 L MCHC 31.3 L RDW 16.4 Plt Count 286 MPV 8.6 Neut % (Auto) 77.0 Lymph % (Auto) 16.2 [place] % (Auto) 5.2 Eos % (Auto) 1.2 Baso % (Auto) 0.4 Neut # (Auto) 7.7 Lymph # (Auto) 1.6 [place] # (Auto) 0.5 Eos # (Auto) 0.1 Baso # (Auto) 0.0 Sodium 139 Potassium 4.3 Chloride 106 Carbon Dioxide 26 Anion Gap 11.3 BUN 14 D Creatinine 0.90 Estimated Creat Clear 137 Estimated GFR 68 Est GFR ( Amer) 82 Glucose 146 H POC Glucose 146 H Calcium 9.1 Total Bilirubin 1.2 AST 82 H D ALT 33 Alkaline Phosphatase 118 Total Protein 7.6 Albumin 3.9 Globulin 3.7 H Albumin/Globulin Ratio 1.1 Triglycerides Cholesterol LDL Cholesterol Direct VLDL Cholesterol HDL Cholesterol Cholesterol/HDL Ratio 09/01/20 09/01/20 09/01/20 20:10 16:09 12:43 WBC RBC Hgb Hct MCV MCH MCHC RDW Plt Count MPV Neut % (Auto) Lymph % (Auto) [place] % (Auto) Eos % (Auto) Baso % (Auto) Neut # (Auto) Lymph # (Auto) [place] # (Auto) Eos # (Auto) Baso # (Auto) Sodium Potassium Chloride Carbon Dioxide Anion Gap BUN Creatinine Estimated Cre
--- NOTE | 2020-09-02 11:02 | HMH.PNCARD ---
Subjective Date: 09/02/20 Time: 11:02 Principal diagnosis: NSTEMI, Cardiomyopathy Interval history: 44-year-old white female in bed in no acute distress. Anxious to go home but knows that we are waiting for approval for her LifeVest due to her severe cardiomyopathy. Questions regarding the vest and therapy for her cardiomyopathy were answered. She will see Dr. Davis next week and we will see her the week after that. Exam Vital signs and Labs for Last 24 Hours: Temp Pulse Resp BP Pulse Ox 97.9 F 90 18 134/78 97 09/02/20 08:00 09/02/20 08:00 09/02/20 08:00 09/02/20 08:00 09/02/20 08:00 Laboratory Results - last 24 hr 09/01/20 04:20: Triglycerides 128, Cholesterol 167, LDL Cholesterol Direct 99.83 L, VLDL Cholesterol 26, HDL Cholesterol 40, Cholesterol/HDL Ratio 4.2 H 09/01/20 12:43: POC Glucose 236 H 09/01/20 16:09: POC Glucose 295 H 09/01/20 20:10: POC Glucose 251 H 09/02/20 05:22: POC Glucose 146 H 09/02/20 06:50: WBC 10.0, RBC 4.73, Hgb 11.9 L, Hct 37.9, MCV 80.1 L, MCH 25.1 L, MCHC 31.3 L, RDW 16.4, Plt Count 286, MPV 8.6, Neut % (Auto) 77.0, Lymph % (Auto) 16.2, [place] % (Auto) 5.2, Eos % (Auto) 1.2, Baso % (Auto) 0.4, Neut # (Auto) 7.7, Lymph # (Auto) 1.6, [place] # (Auto) 0.5, Eos # (Auto) 0.1, Baso # (Auto) 0.0 09/02/20 06:50: Sodium 139, Potassium 4.3, Chloride 106, Carbon Dioxide 26, Anion Gap 11.3, BUN 14 D, Creatinine 0.90, Estimated Creat Clear 137, Estimated GFR 68, Est GFR ( Amer) 82, Glucose 146 H, Calcium 9.1, Total Bilirubin 1.2, AST 82 H D, ALT 33, Alkaline Phosphatase 118, Total Protein 7.6, Albumin 3.9, Globulin 3.7 H, Albumin/Globulin Ratio 1.1 I & O for Last 24 hours: Intake & Output 08/30/20 08/31/20 09/01/20 09/02/20 11:59 11:59 11:59 11:59 Intake Total 362 / 362 1671 / 1671 Balance 362 / 362 1671 / 1671 Weight 239 lb 239 lb - Constitutional no acute distress - *Routine HEENT Exam Head: Present: normocephalic Eye: Present: EOMI, PERRL ENT: Present: mucous membranes moist - *Routine Neck Exam Present: supple. Absent: lymphadenopathy - *Routine Respiratory Exam Present: CTA bilaterally - *Routine Cardiovascular Exam Present: RRR - *Routine Abdominal Exam Present: soft, normoactive bowel sounds. Absent: tenderness - *Routine Extremities Exam Absent: cyanosis, clubbing, edema - *Routine Skin Exam Present: warm. Absent: rash - *Routine Neurological Exam Present: alert, oriented X3 Progress Note: A&P (1) Non-STEMI (non-ST elevated myocardial infarction) Status: Acute (2) ASCVD (arteriosclerotic cardiovascular disease) Status: Acute (3) Epigastric abdominal pain Status: Acute (4) Chronic systolic heart failure Status: Acute (5) HTN (hypertension) Status: Acute (6) Hyperlipidemia Status: Acute (7) Uncontrolled diabetes mellitus Status: Acute (8) Obesity Status: Chronic (9) Stented coronary artery Status: Chronic Assessment and Plan for All Diagnoses:: Blood pressure has improved on increased medical therapy. Once LifeVest is in place patient can be discharged home hopefully later today. Follow-up in our office in 7 to 14 days. Patient will be a candidate for AICD after 40 days from this non-ST elevation MS if her ejection fraction remains below 35% Home medication recommendations: Aspirin 81 mg daily Clopidogrel 75 mg daily Coreg 25 mg twice daily Entresto 24/ twice daily Spironolactone 25 mg daily Atorvastatin 40 mg daily We will use Lasix as needed.
[2020-09-02 12:17] LABS: POC Glucose,Bedside 209 (70-110)
[2020-09-02 17:10] LABS: POC Glucose,Bedside 156 (70-110)
--- NOTE | 2020-09-02 19:35 | PC.NURSE ---
PT IS RESTING IN BED . NO COMPLAINTS OF DISCOMFORT. ALERT AND ORIENTED X4. PT IS WAITING PATIENTLY FOR LIFE VEST. AMBULATED TO THE BATHROOM AND AROUND THE ROOM. VSS. LUNG SOUNDS CLEAR. ABDOMEN SOFT/NON TENDER WITH ACTIVE BOWEL SOUNDS. PT STATED HER LAST BOWEL MOVEMENT WAS EARLY THIS MORNING. EATING AN DRINKING WELL. WILL CONTINUE TO MONITOR.
[2020-09-02 20:32] LABS: POC Glucose,Bedside 190 (70-110)
[2020-09-03] VITALS: BP 135/76; PULSE 80; PULSE 87; RESP 20; TEMP 36.9; O2SAT 95
--- NOTE | 2020-09-03 00:09 | PC.NURSE ---
2030 patient currently being instructed and fitted for life vest.
--- NOTE | 2020-09-03 00:10 | PC.NURSE ---
2130 patient instructed on self administering insulin. patient demonstrated with rn at bedside. education done on short and long acting insulin
[2020-09-03 04:00] VITALS: BP 142/80; PULSE 80; PULSE 81; RESP 16; TEMP 36.8; O2SAT 98
[2020-09-03 05:00] VITALS: BMI 42.3
[2020-09-03 05:50] LABS: POC Glucose,Bedside 152 (70-110)
--- NOTE | 2020-09-03 06:13 | PC.NURSE ---
shift summary patient has rested well throughout shift,secured entrance monitor has shown sr. denied any pain, nausea, vomiting or diarrhea. life vest in place and instructions given. patient also educated on insulin administration as well as medications. breath sounds clear throughout all clemens. right radial cath site c,d,i and right femoral cath site c,d,i. ambulates to restroom independently, voids clear yellow urine. requested going home after life vest placed, dr. perez paged, no orders received will discharge this am. patient understands
[2020-09-03 08:00] VITALS: BP 109/66; PULSE 95; RESP 18; TEMP 36.7; O2SAT 97
--- NOTE | 2020-09-03 08:26 | HMH.DCSUM ---
General - General Admission date:: 08/31/20 Discharge date: 09/03/20 HPI HPI: 44-year-old white female with significant cardiac disease history, recently with LAD stent placement with exceedingly poor catheterization results with multiple vessel disease, small vessel disease and multiple unstented lesions with depressed ejection fraction, who suffered myocardial infarction and the stent placement earlier this month. She has been at home with purportedly enhanced medication intervention with dual antiplatelet therapy, statin therapy, beta-blockade, JOBY inhibitor and SGLT2 inhibitor therapy but apparently has not been very compliant with her diet as yesterday she was eating pizza and began to have heartburn sensations. The heartburn sensations transitioned into a pressure-like sensation with diaphoresis and she presented to the emergency department where troponin initially was normal but very quickly elevated. Admitted to hospital for further evaluation, observation, telemetry monitoring and cardiology consultation. Hospital Course Hospital Course: Patient was admitted, ruled in for STEMI. Taken to [facility], no stent double lesions but diffuse coronary disease as previously noted with diminished ejection fraction. It turns out that patient had not been taking her dual antiplatelet therapy at home and had not been on Plavix since her most recent stent although this has been prescribed. She also had exceedingly poor glucose control. Patient was fitted for a LifeVest and this came in yesterday, she is tolerated it well overnight has had no further problems. Talked with patient this morning. She has successfully cut down her smoking. She understands the consequences of poor diabetes control and is ready to be discharged home today. Discharge medications have already been filled by our medications-bed program and she is in possession of her antiplatelet therapy, glucose control medication and CHF medication. We will see her in the office in short-term follow-up as well cardiology. Objective Vital signs: Temp Pulse Resp BP Pulse Ox 98.2 F 81 16 142/80 H 98 09/03/20 04:00 09/03/20 04:00 09/03/20 04:00 09/03/20 04:00 09/03/20 04:00 no acute distress - *Routine HEENT Exam Head: Present: normocephalic Eye: Present: EOMI, PERRL ENT: Present: mucous membranes moist - *Routine Neck Exam Present: supple - *Routine Respiratory Exam Present: CTA bilaterally - *Routine Cardiovascular Exam Present: RRR - *Routine Abdominal Exam Present: soft, normoactive bowel sounds, obese. Absent: tenderness - *Routine Extremities Exam Absent: cyanosis, clubbing, edema - *Routine Skin Exam Present: warm. Absent: rash - Detailed Eye Exam Eyelids: Bilateral normal inspection Results Labs on day of discharge: Labs from last 24 hours 09/03/20 09/02/20 09/02/20 05:39 20:21 16:57 POC Glucose 152 H 190 H 156 H 09/02/20 11:38 POC Glucose 209 H DS: Diagnosis - Discharge Diagnosis (1) Non-STEMI (non-ST elevated myocardial infarction) Status: Resolved (2) ASCVD (arteriosclerotic cardiovascular disease) Status: Chronic (3) Epigastric abdominal pain Status: Resolved (4) Chronic systolic heart failure Status: Acute (5) HTN (hypertension) Status: Acute (6) Hyperlipidemia Status: Acute (7) Uncontrolled diabetes mellitus Status: Chronic (8) Obesity Status: Chronic (9) Stented coronary artery Status: Chronic Discharge Plan - Patient Discharge Instructions ACTIVITY: Limited activity, No heavy lifting DIET: diabetic diet, low fat, low cholesterol Patient Instructions: DI for Heart Attack, Heart Attack, Cardiac Catheterization, DI for Nausea -- Adult, DI for Surgical Site Infection, DI for Chest Pain, Surgical Site Infection, Nausea and Vomiting-Adult - Follow up Plan Follow up with: Anatoliy Davis MD [Staff Physician] - 09/09/20 11:
[2020-09-03 08:34] LABS: Basophils % 0.2 % (0.1-2.0); Eosinophils # 0.1 K/mm3 (0.0-0.4); Eosinophils % 1.3 % (0.1-12.0); Hematocrit 38.5 % (37.0-47.0); Hemoglobin 12.1 g/dL (12.2-16.2); Lymphocytes # 1.7 K/mm3 (0.7-4.5); Lymphocytes % 17.5 % (10-50); Mean Corpuscular HGB Conc 31.5 g/dL (31.8-35.4); Mean Corpuscular Hemoglobin 25.2 pg (27.0-31.2); Mean Corpuscular Volume 79.9 fl (81-99); Mean Platelet Volume 8.9 fl (7.4-10.4); Monocytes # 0.5 K/mm3 (0.1-1.0); Monocytes % 5.2 % (1.7-9.3); Neutrophils # 7.3 K/mm3 (1.8-7.8); Neutrophils % 75.7 % (37.0-80.0); Platelet Count 327 K/mm3 (142-424); Red Blood Count 4.81 M/mm3 (4.20-5.40); Red Cell Distribution Width 16.5 % (11.5-17.5); White Blood Count 9.6 K/mm3 (4.8-10.8)
[2020-09-03 08:42] LABS: Anion Gap 13.1 mEq/L (5-15); Blood Urea Nitrogen 16 mg/dl (7-17); Calcium 9.5 mg/dl (8.4-10.2); Carbon Dioxide 23 mmol/L (22.0-30.0); Chloride 106 mmol/L (98-107); Creatinine Clearance Estimated 77 mL/min (50-200); Estimated Glomerular Filt Rate 78 ml/min (>60); GFR (African American) 94 ML/MIN (>60); Glucose 171 mg/dl (74-100); Potassium 4.1 mmoL/L (3.5-5.1); Sodium 138 mmol/L (136-145)
== END 2020-09-03 11:00 | disposition home or self-care (01) | DRG 281 ==
LOC: ER 20:07 → 2ND 21:22
PROVIDERS: Emergency Medicine; Internal Medicine; Internal Medicine Adolescent Medicine; Nurse Practitioner Family; Admitting Provider Internal Medicine Adolescent Medicine; Emergency Provider Family Medicine; PCP Family Medicine; Visit Provider Internal Medicine Adolescent Medicine
PROC: 4A023N7 Measurement of Cardiac Sampling and Pressure, Left Heart, Percutaneous Approach (ICD-10-PCS; principal; 2020-09-01 14:30)
DX: I21.4 Non-ST elevation (NSTEMI) myocardial infarction (principal); I50.22 Chronic systolic (congestive) heart failure; Z68.41 Body mass index [BMI] 40.0-44.9, adult; I11.0 Hypertensive heart disease with heart failure; E11.9 Type 2 diabetes mellitus without complications; Z79.4 Long term (current) use of insulin; Z79.01 Long term (current) use of anticoagulants; I25.118 Atherosclerotic heart disease of native coronary artery with other forms of angina pectoris; Z95.5 Presence of coronary angioplasty implant and graft; E66.9 Obesity, unspecified; Z88.8 Allergy status to other drugs, medicaments and biological substances; Z91.018 Allergy to other foods; Z87.891 Personal history of nicotine dependence; I25.5 Ischemic cardiomyopathy; T45.526A Underdosing of antithrombotic drugs, initial encounter; Z91.128 Patient's intentional underdosing of medication regimen for other reason
CPT/HCPCS: 36415; 71045; 80048; 80053; 80061; 82150; 82962; 83690; 84484; 85025; 85610; 85730; 87581; 87633; 87798; 93005; 93306; 93458; 96374; 96375; 99152; 99282; C1725; C1769; J1644; Q9967

== ENCOUNTER 2020-09-09 09:02 | Outpatient (RCR) | payer OTHER, SELFPAY | END 2020-12-23 11:00 | disposition home or self-care (01) | LOC: PT 09:02 | PROVIDERS: Visit Provider Internal Medicine | DX: Z95.5 Presence of coronary angioplasty implant and graft (principal); I25.2 Old myocardial infarction | CPT/HCPCS: 93798 ==

== ENCOUNTER → 2020-09-12 14:03 | Outpatient (CLI) | payer OTHER, SELFPAY ==
[2020-09-12 15:41] LABS: Alanine Aminotransferase 29 U/L (12-78); Albumin Level 4.1 g/dl (3.5-5.0); Alkaline Phosphatase 145 U/L (38-126); Aspartate Amino Transferase 33 U/L (14-36); Bilirubin,Total 0.9 mg/dl (0.2-1.3); Total Protein,Serum 7.2 g/dl (6.3-8.2)
[2020-09-12 15:42] LABS: Anion Gap 14.7 mEq/L (5-15); Blood Urea Nitrogen 15 mg/dl (7-17); Calcium 9.7 mg/dl (8.4-10.2); Carbon Dioxide 23 mmol/L (22.0-30.0); Chloride 104 mmol/L (98-107); Estimated Glomerular Filt Rate 78 ml/min (>60); GFR (African American) 94 ML/MIN (>60); Glucose 181 mg/dl (74-100); Potassium 4.7 mmoL/L (3.5-5.1); Sodium 137 mmol/L (136-145)
[2020-09-12 15:50] LABS: NT Pro Brain Natriuretic Pep. 496 pg/mL (0-125)
== END ==
PROVIDERS: Internal Medicine; Internal Medicine Adolescent Medicine; Visit Provider Internal Medicine Cardiovascular Disease
DX: I25.10 Atherosclerotic heart disease of native coronary artery without angina pectoris (principal); E11.69 Type 2 diabetes mellitus with other specified complication; E11.65 Type 2 diabetes mellitus with hyperglycemia; I10 Essential (primary) hypertension; I21.4 Non-ST elevation (NSTEMI) myocardial infarction; I25.5 Ischemic cardiomyopathy; E78.5 Hyperlipidemia, unspecified; Z95.5 Presence of coronary angioplasty implant and graft; Z79.4 Long term (current) use of insulin
CPT/HCPCS: 36415; 80048; 82040; 82247; 83880; 84075; 84155; 84450; 84460

== ENCOUNTER → 2021-01-20 09:16 | Outpatient (CLI) | payer OTHER, SELFPAY ==
--- NOTE | 2021-01-20 | CA_ITS ---
APPROVED REPORT EXAM: Comprehensive 2D, Doppler, and color-flow Echocardiogram Meter/Relay Technician: Yesenia Moscoso RT(R) Ht: 5 ft 5 in Wt: 234lbs BSA: 2.11 BP: 124/76 mmHg Indications: Hyperlipidemia, smoker, HTN, currently in lifevest, CM, CAD, nonSTEMI, ordered with definity to assess the EF, EF was 30% on echo 08/31/20. Echo Enhancing Agent Indication: Endocardial border delineation Agent(s) / Amount(s) Used: Definity 2 cc M-Mode Dimensions RVDd 2.58 cm (0.9-2.6) LVDd 4.63 cm (3.5-5.7) LVDs 3.50 cm (3.5-5.7) IVSd 0.84 cm (0.6-1.1) PWd 1.05 cm (0.6-1.1) EF (Teich) 48.50% FS 24.40% EDV (Teich) 98.80 mL ESV (Teich) 50.90 mL Conclusion 1. Limited echocardiogram was performed to assess left ventricular systolic function, Definity contrast was utilized to delineate the endocardial surfaces. 2. Left ventricle is normal size, estimated ejection fraction 30%, there is marked hypokinesis involving mid to distal septum, anterior apical, apex and anterior wall. There is no left ventricular thrombus seen. 3. No significant pericardial effusion noted. Electronically signed by : Jerod Elise MD 01/20/2021 13:58:20
== END ==
PROVIDERS: PCP Internal Medicine Adolescent Medicine; Visit Provider Internal Medicine Cardiovascular Disease
DX: I21.4 Non-ST elevation (NSTEMI) myocardial infarction (principal); I50.22 Chronic systolic (congestive) heart failure; I11.0 Hypertensive heart disease with heart failure; E11.9 Type 2 diabetes mellitus without complications; Z79.4 Long term (current) use of insulin
CPT/HCPCS: 93308; Q9957

== ENCOUNTER → 2021-02-06 10:36 | Outpatient (CLI) | payer OTHER, SELFPAY ==
[2021-02-06 11:42] LABS: Basophils % 0.3 % (0.1-2.0); Eosinophils # 0.1 K/mm3 (0.0-0.4); Eosinophils % 1.3 % (0.1-12.0); Hemoglobin 11.5 g/dL (12.2-16.2); Lymphocytes # 1.4 K/mm3 (0.7-4.5); Lymphocytes % 12.4 % (10-50); Mean Corpuscular HGB Conc 31.1 g/dL (31.8-35.4); Mean Corpuscular Volume 83.5 fl (81-99); Mean Platelet Volume 9.2 fl (7.4-10.4); Monocytes # 0.6 K/mm3 (0.1-1.0); Neutrophils # 8.9 K/mm3 (1.8-7.8); Neutrophils % 81.1 % (37.0-80.0); Platelet Count 373 K/mm3 (142-424); Red Blood Count 4.43 M/mm3 (4.20-5.40); Red Cell Distribution Width 15.7 % (11.5-17.5)
[2021-02-06 11:55] LABS: Chloride 106 mmol/L (98-107); Potassium 4.7 mmoL/L (3.5-5.1); Sodium 141 mmol/L (136-145)
[2021-02-06 11:58] LABS: Anion Gap 13.7 mEq/L (5-15); Blood Urea Nitrogen 13 mg/dl (7-17); Calcium 9.2 mg/dl (8.4-10.2); Carbon Dioxide 26 mmol/L (22.0-30.0); Estimated Glomerular Filt Rate 78 ml/min (>60); GFR (African American) 94 ML/MIN (>60); Glucose 130 mg/dl (74-100)
== END ==
PROVIDERS: Visit Provider Internal Medicine Cardiovascular Disease
DX: Z01.812 Encounter for preprocedural laboratory examination (principal); Z20.822 Contact with and (suspected) exposure to COVID-19; I42.9 Cardiomyopathy, unspecified; I21.4 Non-ST elevation (NSTEMI) myocardial infarction; I25.10 Atherosclerotic heart disease of native coronary artery without angina pectoris; R06.00 Dyspnea, unspecified; I50.22 Chronic systolic (congestive) heart failure; R00.0 Tachycardia, unspecified; E11.9 Type 2 diabetes mellitus without complications; I10 Essential (primary) hypertension; R53.83 Other fatigue; Z79.4 Long term (current) use of insulin
CPT/HCPCS: 36415; 80048; 85025; U0003

== ENCOUNTER 2021-02-08 08:57 | Day surgery (SDC) | payer OTHER, SELFPAY ==
[2021-02-08] VITALS (8 sets, daily range): BP systolic 107–134; BP diastolic 49–89; PULSE 79–94; RESP 18–20; TEMP 36.8; O2SAT 92–100; BMI 39.9
--- NOTE | 2021-02-08 07:05 | P.PN_ITS ---
[facility] Anesthesia Checklist - Patient Identification Patient Identification: Arm Band - Structural Data Admitted From: Home Planned Operative Procedure/s: Bi ventricular AICD Consent for Planned Operative Procedure(s) Verified: Yes - NPO Status Verified Time NPO: 00:00 - Additional verifications Previous Colonoscopy: No - Cardiovascular Assessment Heart Sounds: S1 & S2 Pulse Strength: Baseline Pulse Rhythm: Regular Peripheral Edema: No - Airway Assessment C-Spine Mobility Assessed: Yes TMJ Mobility Assessed: Yes Dentition: Poor Dentition - Neurological Assessment Level of Consciousness: Awake Hx Seizures: No Numbness or tingling in extremities: No - Anesthesia Plan Anesthesia Risk discussed: Yes Anesthesia Plan: Verified ASA Class: III Anesthesia Type: MAC [facility] History I have reviewed the patient's past medical history: Yes Medical History: Reports:: Anxiety, Arrhythmia, Atherosclerotic Heart Disease, Coronary Artery Disease, Diabetes Mellitus Type 2, Gastroesophageal Reflux Disease(GERD), Hyperlipidemia, Hypertension, Myocardial Infarction, Palpitations Denies:: Cancer, Diabetes Mellitus Type 1, MRSA *Have you ever received a pneumonia vaccine?: No *Have you received a flu vaccine this season?: No Other Medical History: Reports: Arthritis, Fibromyalgia Anesthesia experience/problems:: None Other Surgeries: Yes: Cardiac Catheterization, Coronary Stent, , Dilation and Curettage, Tubal Ligation Amputation: No Fractures: Yes (L rodriguez, R foot, toes, 3 r ribs, l hand crushed, r wrist (x2)) - *Social History Smoking Status: Former smoker Tobacco Type: cigarettes # Packs/Day (cigarettes): 1 #Yrs smoked (if former smoker): 32 Alcohol Intake: never Alcohol Intake Frequency:: holidays/special occasions only Substance Use Type: crack/cocaine, painkillers *Occupational Status:: other Housing: house Household Members: spouse *Travel in the last 8 weeks: None - Psychiatric History Pschychiatric History:: Reports:: Anxiety Family Hx:: Cancer, Diabetes, Heart Attack, Hyperlipidemia, Hypertension, Stroke, Substance abuse, Alcoholism, Mental illness
--- NOTE | 2021-02-08 07:09 | IR_ITS ---
APPROVED REPORT Patient Location: Outpatient [facility]ier Supervisor: ALICIA Valente RT (R) PROCEDURES 1. Pocket formation for AICD. 2. Placement of atrial sensing and pacing coil into the right atrial appendage. 3. Placement of a ventricular sensing, pacing and shocking coil in the right ventricular apex. 4. Permanent AICD placement. INDICATION Systolic Congestive Heart Failure, ejection < 35%, [place] Heart Assoication Class 3 Congestive Heart Failure Informed consent was obtained prior to the procedure. COMPLICATIONS None Estimated Blood Loss: Less than 10 mls TECHNIQUE 1% Lidocaine with epinephrine used to anesthetized the left anterior aspect of the chest. Scalpel was used to make the initial cutaneous incision while electrocautery was used to dissect down tinto the fascia. The fascia was lifted off the pectoralis muscle and digitally manipulated creating a pocket for the defibrillator. The patient was then placed in Trendelenburg position and the subclavian vein was accessed 2 times via the Selinger technique. A 8 [place] sheath was placed under fluoroscopic guidance into the subclavian vein. The dilator was removed from the sheath. Using fluoroscopic guidance, the ventricular lead was placed into the right ventricular apex, screwed and secured into place. Electronic interrogation proved acceptable thresholds and voltage within the lead. Using 3-0 silk, the ventricular lead was then secured into place and sheath peeled away. A 6 [place] fresh sheath and dilator was placed over the existing wire. Using fluoroscopic guidance, the atrial lead was then placed into the right atrial appendage and screwed and secured in place. Electrical interrogation demonstrated acceptable thresholds and voltage number. The atrial lead was then secured into place using 3-0 silk and sheath peeled away. 1 gram of Ancef was used to flush the pocket. All 3 leads were connected to generator and tested via computer. The defibrillator then secured to the fascia. Monocryl was used to close the subcutaneous layers while stephon were used to close the cutaneous layer. A pressure dressing was placed and the patient was transferred to the postop holding area in stable condition for postoperative care. INTERROGATION Generator Model number: PERCIVA ICD DR, D413 Generator Serial number: [id number] Atrial lead model number: INGEVITY+, 45cm, 7840 Atrial lead serial number: [id number] P-wave: 4.0mV Impedence: 500 ohms Threshold: 0.7V@0.7ms Right Ventricular lead model number: FORREST 4-FRONT, 59cm, 0675 Right Ventricular lead serial number: [id number] R-wave: 24.0mV Impedence: 550 ohms Threshold: 0.5V@0.4ms Pacing Parameters: Mode: DDD Base/Max Track: 60/130ppm ICD Rate Cutoffs: VT: 180 bpm, 5.0 sec., Monitor only VF: 200 bpm, 2.5 sec., Quick Convert [id number] No diaphragmatic stimulation at 10 volts. IMPRESSION 1. Successful pocket formation for AICD. 2. Successful placement of atrial sensing and pacing coil into the right atrial appendage. 3. Successful placement of a ventricular sensing, pacing and shocking coil in the right ventricular apex. 4. Successful permanent AICD placement. PLAN 1. Follow up office visit, post op wound care. Electronically signed by : Michele Patel MD 02/09/2021 11:56:21
--- NOTE | 2021-02-08 12:36 | XR_ITS ---
PROCEDURE: XR CHEST PORTABLE CLINICAL HISTORY: POST AICD PLACEMENT. COMPARISON: CR XR CHEST 2V from 06/29/2019 CR XR CHEST PORTABLE from 08/18/2020 CR XR CHEST PORTABLE from 08/31/2020 FINDINGS: Status post AICD placement from left subclavian approach with leads in the region of the right atrium and right ventricle. No evidence of pneumothorax. Skin clips are present overlying the left upper chest. Lungs are clear. Normal heart size. Coronary artery stent is noted. No acute bony abnormalities. IMPRESSION: Status post AICD placement as described above. No evidence of pneumothorax Dictated by: Gen Owens MD 02/08/2021 14:04 Gen Owens MD in OV 02/08/2021 14:04
== END 2021-02-08 13:49 | disposition home or self-care (01) ==
LOC: CATHLAB 08:58
PROVIDERS: PCP Internal Medicine Adolescent Medicine; Visit Provider Internal Medicine
PROC: 0JH608Z Insertion of Defibrillator Generator into Chest Subcutaneous Tissue and Fascia, Open Approach (ICD-10-PCS; CPT 33249; principal; 2021-02-08 09:00)
DX: I25.2 Old myocardial infarction (principal); E11.9 Type 2 diabetes mellitus without complications; I25.10 Atherosclerotic heart disease of native coronary artery without angina pectoris; I25.5 Ischemic cardiomyopathy; I50.22 Chronic systolic (congestive) heart failure; I11.0 Hypertensive heart disease with heart failure; Z79.4 Long term (current) use of insulin; Z95.5 Presence of coronary angioplasty implant and graft; Z79.899 Other long term (current) drug therapy; Z88.8 Allergy status to other drugs, medicaments and biological substances
CPT/HCPCS: 33249; 71045; C1721; C1895; C1898

== ENCOUNTER → 2021-02-28 13:28 | Outpatient (CLI) | payer OTHER, SELFPAY ==
[2021-02-28 14:39] LABS: Alanine Aminotransferase 50 U/L (12-78); Albumin Level 3.9 g/dl (3.5-5.0); Alkaline Phosphatase 251 U/L (38-126); Anion Gap 12.6 mEq/L (5-15); Aspartate Amino Transferase 39 U/L (14-36); Bilirubin,Total 0.6 mg/dl (0.2-1.3); Blood Urea Nitrogen 12 mg/dl (7-17); Calcium 9.2 mg/dl (8.4-10.2); Carbon Dioxide 30 mmol/L (22.0-30.0); Chloride 104 mmol/L (98-107); Chol/HDL Ratio 2.8 (1-3.5); Cholesterol 135 mg/dl (140-200); Estimated Glomerular Filt Rate 90 ml/min (>60); GFR (African American) 109 ML/MIN (>60); Globulin 3.8 g/dL (1.3-3.2); Glucose 142 mg/dl (74-100); HDL Cholesterol 48 mg/dl (40-60); Potassium 4.6 mmoL/L (3.5-5.1); Sodium 142 mmol/L (136-145); Total Protein,Serum 7.7 g/dl (6.3-8.2); Triglycerides 85 mg/dl (30-150); VLDL Cholesterol 17 mg/dL (0-40)
[2021-02-28 16:02] LABS: Hemoglobin A1C 6.7 % (4.0-6.0)
== END ==
PROVIDERS: Visit Provider Internal Medicine Adolescent Medicine
DX: E11.59 Type 2 diabetes mellitus with other circulatory complications (principal); Z79.4 Long term (current) use of insulin
CPT/HCPCS: 36415; 80053; 80061; 83036

== ENCOUNTER 2021-05-25 12:29 | Emergency (ER) | payer OTHER, SELFPAY ==
[2021-05-25 12:30] VITALS: BP 139/78; PULSE 82; RESP 22; TEMP 36.4; O2SAT 100; BMI 40.3
--- NOTE | 2021-05-25 12:45 | CT_ITS ---
PROCEDURE INFORMATION: Exam: CT Abdomen And Pelvis Without Contrast Exam date and time: 05/25/2021 12:45 PM Age: 45 years old Clinical indication: Other: Left flank; Patient HX: Lt flank and llq pain TECHNIQUE: Imaging protocol: Computed tomography of the abdomen and pelvis without contrast. Radiation optimization: All CT scans at this facility use at least one of these dose optimization techniques: automated exposure control; mA and/or kV adjustment per patient size (includes targeted exams where dose is matched to clinical indication); or iterative reconstruction. COMPARISON: None FINDINGS: Detailed evaluation of the abdominal and pelvic viscera is somewhat limited in the absence of intravenous contrast. Lungs: Interstitial prominence and mild parenchymal stranding in the right lung base. Atrioventricular pacemaker. Liver: Fatty infiltration of the liver. Gallbladder and bile ducts: Unremarkable gallbladder. Pancreas: No pancreatic mass or ductal dilatation. Spleen: Enlarged spleen measuring 14.0 cm in length. Adrenal glands: Unremarkable adrenals. Kidneys and ureters: Mild left hydronephrosis in association with a 1 mm left ureteral calculus at the L4-L5 level. 1 and 5 mm nonobstructing left renal calculi. 2.6 cm right renal cyst with peripheral calcification. Stomach and bowel: No significant small bowel dilatation. Prominent stool. Diverticula, without pericolonic inflammation. Appendix: No acute appendicitis. Intraperitoneal space: No free fluid. Vasculature: Normal caliber of the abdominal aorta. Lymph nodes: Subcentimeter lymph nodes. Urinary bladder: Unremarkable bladder. Reproductive: 3.2 and 3.4 cm left ovarian cysts, along with punctate left ovarian calcification. Bones/joints: Bilateral sacroiliac joint sclerosis. Degenerative change. IMPRESSION: 1. Mild left hydronephrosis in association with a 1 mm left ureteral calculus at the L4-L5 level. 2. 1 and 5 mm nonobstructing left renal calculi. 3. 3.2 and 3.4 cm left ovarian cysts. 4.Additional findings as described above. COMMENTS: Consistent with the [place] [employer]'s Incidental Findings Committee white paper (J Am Rosanna Radiol 2018): Any incidental renal lesion less than 1 cm or classified as too small to characterize, or any incidental cystic renal lesion characterized as simple-appearing, is likely benign. No follow-up imaging is recommended for these lesions per consensus recommendations based on imaging criteria.
[2021-05-25 12:56] LABS: Microscopic, Urine URINE MICROSCOPIC (MICROSCOPIC)
[2021-05-25 12:58] LABS: Appearance,Urine CLOUDY (Clear); Bilirubin,Urine Negative (Negative); Blood, Urine Negative (Negative); Color,Urine YELLOW (Yellow); Glucose,Urine (UA) 3+ (Negative); Ketones,Urine Negative (Negative); Leukocyte Esterase,Urine Negative (Negative); Nitrate,Urine Negative (Negative); Protein,Urine Negative (Negative); Urobilinogen,Urine 0.2 EU/dl (0.2)
[2021-05-25 13:02] LABS: Basophils % 0.3 % (0.1-2.0); Eosinophils # 0.1 K/mm3 (0.0-0.4); Eosinophils % 1.2 % (0.1-12.0); Hematocrit 37.5 % (37.0-47.0); Hemoglobin 11.6 g/dL (12.2-16.2); Lymphocytes # 1.1 K/mm3 (0.7-4.5); Lymphocytes % 10.1 % (10-50); Mean Corpuscular Hemoglobin 23.9 pg (27.0-31.2); Mean Corpuscular Volume 77.3 fl (81-99); Mean Platelet Volume 8.2 fl (7.4-10.4); Monocytes # 0.6 K/mm3 (0.1-1.0); Neutrophils # 9.1 K/mm3 (1.8-7.8); Neutrophils % 83.3 % (37.0-80.0); Platelet Count 260 K/mm3 (142-424); Red Blood Count 4.85 M/mm3 (4.20-5.40); Red Cell Distribution Width 16.6 % (11.5-17.5); White Blood Count 10.9 K/mm3 (4.8-10.8)
[2021-05-25 13:05] LABS: Alanine Aminotransferase 29 U/L (12-78); Albumin Level 4.3 g/dl (3.5-5.0); Albumin/Globulin Ratio 1.2 (1.1-1.8); Alkaline Phosphatase 204 U/L (38-126); Anion Gap 8.4 mEq/L (5-15); Aspartate Amino Transferase 39 U/L (14-36); Bilirubin,Total 1.4 mg/dl (0.2-1.3); Blood Urea Nitrogen 16 mg/dl (7-17); Calcium 9.3 mg/dl (8.4-10.2); Carbon Dioxide 26 mmol/L (22.0-30.0); Chloride 104 mmol/L (98-107); Creatinine Clearance Estimated 149 mL/min (50-200); Estimated Glomerular Filt Rate 78 ml/min (>60); GFR (African American) 94 ML/MIN (>60); Globulin 3.7 g/dL (1.3-3.2); Glucose 198 mg/dl (74-100); Lipase 166 U/L (23-300); Potassium 4.4 mmoL/L (3.5-5.1); Sodium 134 mmol/L (136-145)
[2021-05-25 13:10] LABS: Urine Pregnancy, HCG Qual. Negative (Negative)
[2021-05-25 13:16] LABS: Bacteria,Urine Trace /lpf; WBC,Urine Occasional #/hpf (0-3)
[2021-05-25 14:00] VITALS: BP 121/71; PULSE 73; RESP 18; O2SAT 98
--- NOTE | 2021-05-25 14:00 | HMH.EDGENADL ---
ED Disposition Clinical Impression: Left ureteral calculus Disposition: Home, Self-Care Condition on Discharge: Good Instructions: DI for Kidney Stones Additional Instructions: Flomax as prescribed. Tylenol #3 as needed for pain. Zofran as needed for nausea. Additional instructions for KIDNEY STONE (URETERAL CALCULUS): See your physician as soon as possible for further evaluation. Drink plenty of fluids. Strain your urine and save any stones you catch. Return immediately if you develop a fever or have uncontrollable vomiting or uncontrollable pain. Prescriptions: Acetaminophen with Codeine [Tylenol with Codeine #3 tablet] 1 - 2 tab PO Q6HP PRN #12 tab PRN Reason: Moderate Pain Transmission Status: Received by [facility] Tamsulosin HCl [Flomax 0.4mg capsule] 0.4 mg PO HS #10 cap Transmission Status: Received by [facility] Ondansetron [Zofran 4mg ODT] 4 mg PO TIDP PRN #10 tab PRN Reason: Nausea And Vomiting Transmission Status: Received by [facility] Referrals: Anatoliy Davis MD [Primary Care Provider] - - Critical Care Critical Care Time: No Attestation: On 05/25/21, the high probability of a clinically significant, sudden or life threatening deterioration of the following system(s) required my full and direct attention, intervention and personal management. The time I documented below is in addition to time spent performing reported procedures but includes the following listed in this critical care notation. Medical Decision Making - Dameon Inquiry Pt receiving controlled substance: Yes Dameon was queried for this patient: Yes Risks and benefits of using a controlled substance: were not discussed with pt by me Vital Signs: 05/25/21 12:30 05/25/21 14:00 05/25/21 14:25 Temperature 97.5 F L Temperature Source Oral Pulse Rate 73 74 Pulse Rate [Right Radial] 82 Respiratory Rate 22 18 18 Blood Pressure 121/71 121/71 Blood Pressure [Right Arm] 139/78 Blood Pressure Mean 95 Blood Pressure Mean [Right Arm] 98 Blood Pressure Source Blood Pressure Source [Right Arm] Automatic Cuff Blood Pressure Position Blood Pressure Position [Right Arm] Sitting 02 Sat by Pulse Oximetry 100 98 99 Oxygen Delivery Method Room Air 05/25/21 14:46 Temperature 98.3 F Temperature Source Oral Pulse Rate 87 Pulse Rate [Right Radial] Respiratory Rate 16 Blood Pressure 124/73 Blood Pressure [Right Arm] Blood Pressure Mean Blood Pressure Mean [Right Arm] Blood Pressure Source Automatic Cuff Blood Pressure Source [Right Arm] Blood Pressure Position Sitting Blood Pressure Position [Right Arm] 02 Sat by Pulse Oximetry Oxygen Delivery Method Room Air - Lab Data Lab Results 05/25/21 12:35: Urine Color Yellow, Urine Appearance Cloudy, Urine pH 6.0, Ur Specific [place] 1.010, Urine Protein Negative, Urine Glucose (UA) 3+, Urine Ketones Negative, Urine Blood Negative, Urine Nitrate Negative, Urine Bilirubin Negative, Urine Urobilinogen 0.2, Ur Leukocyte Esterase Negative, Urine RBC None, Urine WBC Occasional, Ur Squamous Epith Cells 5-10, Urine Bacteria Trace 05/25/21 12:35: WBC 10.9 H, RBC 4.85, Hgb 11.6 L, Hct 37.5, MCV 77.3 L, MCH 23.9 L, MCHC 31.0 L, RDW 16.6, Plt Count 260, MPV 8.2, Neut % (Auto) 83.3 H, Lymph % (Auto) 10.1, [place] % (Auto) 5.0, Eos % (Auto) 1.2, Baso % (Auto) 0.3, Neut # (Auto) 9.1 H, Lymph # (Auto) 1.1, [place] # (Auto) 0.6, Eos # (Auto) 0.1, Baso # (Auto) 0.0 05/25/21 12:35: Urine HCG, Qual Negative 05/25/21 12:35: Sodium 134 L, Potassium 4.4, Chloride 104, Carbon Dioxide 26, Anion Gap 8.4, BUN 16, Creatinine 0.80, Estimated Creat Clear 149, Estimated GFR 78, Est GFR ( Amer) 94, Glucose 198 H, Calcium 9.3, Total Bilirubin 1.4 H, AST 39 H, ALT 29, Alkaline Phosphatase 204 H, Total Protein 8.0, Albumin 4.3, Globulin 3.7 H, Albumin/Globulin Ratio 1.2, Lipase 166 Result diagrams: 05/25/21 12:35 05/25/21 12:35 Orders (Tests/Meds)
[2021-05-25 14:25] VITALS: BP 121/71; PULSE 74; RESP 18; O2SAT 99
[2021-05-25 14:46] VITALS: BP 124/73; PULSE 87; RESP 16; TEMP 36.8; O2SAT 98
== END 2021-05-25 14:54 | disposition home or self-care (01) ==
PROVIDERS: Emergency Provider Emergency Medicine; PCP Internal Medicine Adolescent Medicine
DX: N20.0 Calculus of kidney (principal); Z87.442 Personal history of urinary calculi; K21.9 Gastro-esophageal reflux disease without esophagitis; E78.5 Hyperlipidemia, unspecified; I10 Essential (primary) hypertension; I25.10 Atherosclerotic heart disease of native coronary artery without angina pectoris; Z79.899 Other long term (current) drug therapy
CPT/HCPCS: 74176; 80053; 81001; 81025; 83690; 85025; 96365; 96375; 99283; J2405

== ENCOUNTER 2021-05-27 12:40 | Inpatient (IN) | payer OTHER, SELFPAY ==
[2021-05-27] VITALS (17 sets, daily range): BP systolic 77–134; BP diastolic 36–68; PULSE 85–117; RESP 14–22; TEMP 37.2–39.5; O2SAT 95–100; BMI 40.1; BMI 38.5
--- NOTE | 2021-05-27 12:46 | ECG_ITS ---
APPROVED REPORT Exam: Resting ECG HR:104 bpm ECG Measurements Heart Rate 104 AXES ND 132 P 59 QRSd 78 QRS 13 QT 360 T 69 QTc 473 Conclusion Sinus tachycardia Low voltage QRS Late r wave progression Abnormal ECG Electronically signed by : Selvin Valente MD 05/29/2021 20:23:12
--- NOTE | 2021-05-27 12:59 | HMH.EDGENADL ---
ED Disposition Clinical Impression: Left ureteral calculus, Dehydration Hypotension Qualifiers: Hypotension type: unspecified hypotension type Qualified Code(s): I95.9 - Hypotension, unspecified Sepsis Qualifiers: Sepsis type: sepsis due to unspecified organism Sepsis acute organ dysfunction status: without acute organ dysfunction Qualified Code(s): A41.9 - Sepsis, unspecified organism Disposition: Admitted as Observation Condition on Discharge: Fair Referrals: Anatoliy Davis MD [Primary Care Provider] - - Critical Care Critical Care Time: Yes Attestation: On 05/27/21, the high probability of a clinically significant, sudden or life threatening deterioration of the following system(s) required my full and direct attention, intervention and personal management. The time I documented below is in addition to time spent performing reported procedures but includes the following listed in this critical care notation. Vital system(s) involved:: Circulatory Failure My critical care processes included: Assessment & monitoring of V/S, Initial and Re-exams, Data Review/Interpretation, Coordinating Care, Medication Orders and management, Documentation Medical Decision Making - Dameon Inquiry Pt receiving controlled substance: No Vital Signs: 05/27/21 12:41 05/27/21 13:22 05/27/21 13:48 Temperature 98.9 F Temperature Source Oral Pulse Rate 102 H 98 H Pulse Rate [Right Brachial] 110 H Respiratory Rate 16 15 14 Blood Pressure 78/42 L 84/38 L Blood Pressure [Right Arm] 90/58 L Blood Pressure Mean Blood Pressure Mean [Right Arm] 68 Blood Pressure Source Blood Pressure Source [Right Arm] Manual Cuff/ Auscultation Blood Pressure Position Blood Pressure Position [Right Arm] Sitting 02 Sat by Pulse Oximetry 98 98 98 Oxygen Delivery Method Room Air 05/27/21 14:03 05/27/21 14:28 05/27/21 14:40 Temperature Temperature Source Pulse Rate 101 H 100 H 101 H Pulse Rate [Right Brachial] Respiratory Rate 16 16 Blood Pressure 78/36 L 91/50 L 77/38 L Blood Pressure [Right Arm] Blood Pressure Mean 48 62 51 Blood Pressure Mean [Right Arm] Blood Pressure Source Blood Pressure Source [Right Arm] Blood Pressure Position Blood Pressure Position [Right Arm] 02 Sat by Pulse Oximetry 100 100 100 Oxygen Delivery Method 05/27/21 14:47 05/27/21 15:00 05/27/21 15:30 Temperature Temperature Source Pulse Rate 101 H 102 H 102 H Pulse Rate [Right Brachial] Respiratory Rate 16 16 Blood Pressure 80/40 L 82/46 L 114/62 Blood Pressure [Right Arm] Blood Pressure Mean 52 Blood Pressure Mean [Right Arm] Blood Pressure Source Automatic Cuff Blood Pressure Source [Right Arm] Blood Pressure Position Sitting Blood Pressure Position [Right Arm] 02 Sat by Pulse Oximetry 96 100 99 Oxygen Delivery Method Room Air 05/27/21 15:41 05/27/21 16:00 Temperature Temperature Source Pulse Rate 108 H 116 H Pulse Rate [Right Brachial] Respiratory Rate Blood Pressure 122/66 124/66 Blood Pressure [Right Arm] Blood Pressure Mean Blood Pressure Mean [Right Arm] Blood Pressure Source Blood Pressure Source [Right Arm] Blood Pressure Position Blood Pressure Position [Right Arm] 02 Sat by Pulse Oximetry 99 99 Oxygen Delivery Method - Lab Data Lab Results 05/27/21 12:55: WBC 22.3 H* D, RBC 4.08 L, Hgb 9.8 L, Hct 31.1 L, MCV 76.4 L, MCH 24.1 L, MCHC 31.5 L, RDW 16.5, Plt Count 203, MPV 9.4, Neut % (Auto) 91.6 H, Lymph % (Auto) 3.9 L, [place] % (Auto) 4.4, Eos % (Auto) 0.1, Baso % (Auto) 0.1, Neut # (Auto) 20.4 H, Lymph # (Auto) 0.9, [place] # (Auto) 1.0, Eos # (Auto) 0.0, Baso # (Auto) 0.0, Total Counted 100, Neutrophils % (Manual) 91 H, Lymphocytes % (Manual) 4 L, Monocytes % (Manual) 5, Platelet Estimate Normal, Hypochromasia 1+ 05/27/21 12:55: Sodium 129 L, Potassium 3.5 D, Chloride 98, Carbon Dioxide 22, Anion Gap 12.5, BUN 22 H D, Creatinine 1.30
--- NOTE | 2021-05-27 13:04 | XR_ITS ---
PROCEDURE INFORMATION: Exam: XR Chest Exam date and time: 05/27/2021 1:04 PM Age: 45 years old Clinical indication: Other: Hypotensive; Prior surgery; Surgery date: 1-6 months; Surgery type: Pacemaker TECHNIQUE: Imaging protocol: XR of the chest. Views: 1 view. COMPARISON: CR XR CHEST PORTABLE 02/08/2021 1:11 PM FINDINGS: Tubes, catheters and devices: AICD projects in satisfactory location. Lungs: Atelectatic changes noted within both lung bases. Pleural spaces: There is no evidence of pneumothorax. Heart/Mediastinum: Coronary artery stent is noted. Heart size is normal. Bones/joints: Unremarkable. IMPRESSION: 1. AICD projects in satisfactory location. 2. There is no evidence of pneumothorax. 3. Atelectatic changes noted within both lung bases.
[2021-05-27 13:24] LABS: Basophils % 0.1 % (0.1-2.0); Eosinophils % 0.1 % (0.1-12.0); Hematocrit 31.1 % (37.0-47.0); Hemoglobin 9.8 g/dL (12.2-16.2); Lymphocytes # 0.9 K/mm3 (0.7-4.5); Lymphocytes % 3.9 % (10-50); Mean Corpuscular HGB Conc 31.5 g/dL (31.8-35.4); Mean Corpuscular Hemoglobin 24.1 pg (27.0-31.2); Mean Corpuscular Volume 76.4 fl (81-99); Mean Platelet Volume 9.4 fl (7.4-10.4); Monocytes % 4.4 % (1.7-9.3); Neutrophils # 20.4 K/mm3 (1.8-7.8); Neutrophils % 91.6 % (37.0-80.0); Platelet Count 203 K/mm3 (142-424); Red Blood Count 4.08 M/mm3 (4.20-5.40); Red Cell Distribution Width 16.5 % (11.5-17.5); White Blood Count 22.3 K/mm3 (4.8-10.8)
[2021-05-27 13:25] LABS: Chloride 98 mmol/L (98-107); Potassium 3.5 mmoL/L (3.5-5.1); Sodium 129 mmol/L (136-145)
[2021-05-27 13:27] LABS: Alanine Aminotransferase 27 U/L (12-78); Aspartate Amino Transferase 34 U/L (14-36); Blood Urea Nitrogen 22 mg/dl (7-17); Creatinine Clearance Estimated 92 mL/min (50-200); Estimated Glomerular Filt Rate 44 ml/min (>60); GFR (African American) 54 ML/MIN (>60); MANUAL DIFFERENTIAL MANUAL DIFFERENTIAL (MANUAL DIFF)
[2021-05-27 13:28] LABS: Albumin Level 3.3 g/dl (3.5-5.0); Albumin/Globulin Ratio 0.9 (1.1-1.8); Alkaline Phosphatase 155 U/L (38-126); Anion Gap 12.5 mEq/L (5-15); Bilirubin,Total 2.3 mg/dl (0.2-1.3); Calcium 8.2 mg/dl (8.4-10.2); Carbon Dioxide 22 mmol/L (22.0-30.0); Globulin 3.7 g/dL (1.3-3.2); Glucose 198 mg/dl (74-100)
[2021-05-27 13:44] LABS: Troponin I < 0.01 ng/ml (0.00-0.034)
[2021-05-27 13:52] LABS: Lactic Acid 1.2 mmol/L (0.7-2.1)
[2021-05-27 13:55] LABS: Coronavirus 19, PCR Not Detected (NotDetected); Influenza A, PCR Not Detected (NotDetected); Influenza B, PCR Not Detected (NotDetected)
[2021-05-27 14:08] LABS: Hypochromasia 1+; Lymphocytes % 4 % (10-50); Monocytes % 5 % (2-9); Neutrophils % 91 % (42-76); Total Cells Counted 100
[2021-05-27 14:09] LABS: Platelet Estimate Normal
--- NOTE | 2021-05-27 14:31 | PC.NURSE ---
pt up to restroom by w/c
[2021-05-27 14:52] LABS: Microscopic, Urine URINE MICROSCOPIC (MICROSCOPIC)
[2021-05-27 14:59] LABS: Appearance,Urine CLEAR (Clear); Bilirubin,Urine Negative (Negative); Blood, Urine TRACE-I (Negative); Color,Urine YELLOW (Yellow); Glucose,Urine (UA) 3+ (Negative); Ketones,Urine Negative (Negative); Leukocyte Esterase,Urine Negative (Negative); Nitrate,Urine Negative (Negative); Protein,Urine TRACE (Negative); Urobilinogen,Urine 0.2 EU/dl (0.2)
[2021-05-27 15:12] LABS: Bacteria,Urine 1+ /lpf; RBC,Urine Occasional #/hpf (0-3); Squamous Epithelial Cell,Urine Occasional #/hpf (0-5)
--- NOTE | 2021-05-27 15:33 | PC.NURSE ---
Went in to assess pt, advises she still feels weak. Pt still hypotensive at this time but not truly symptomatic at this time. Advises other than the weakness she feels ok. Denies any pain. Pt given another warm blanket and had no other needs at this time. Notified MD of b/p no new orders at this time
--- NOTE | 2021-05-27 15:43 | PC.NURSE ---
Dr. Ryan carey
--- NOTE | 2021-05-27 15:44 | PC.NURSE ---
Dr. Ryan carey
--- NOTE | 2021-05-27 15:59 | PC.NURSE ---
Pt going to be admitted with diagnosis of sepsis but at this time, MD and PCP do not want to bolus pt with fluids due to her CHF and they do not want her overloaded. PT b/p has improved with one liter of fluid. And pt has no complaints.
[2021-05-27 17:38] LABS: POC Glucose,Bedside 142 (70-110)
[2021-05-27 18:03] LABS: Troponin I < 0.01 ng/ml (0.00-0.034)
[2021-05-27 20:04] LABS: Troponin I < 0.01 ng/ml (0.00-0.034)
[2021-05-27 21:11] LABS: POC Glucose,Bedside 231 (70-110)
[2021-05-28 03:49] VITALS: BP 68/38; PULSE 96; RESP 20; TEMP 37.6; O2SAT 99
[2021-05-28 05:14] VITALS: BMI 39.1
[2021-05-28 05:16] VITALS: BP 92/51; PULSE 84; RESP 20
[2021-05-28 05:39] LABS: POC Glucose,Bedside 197 (70-110)
--- NOTE | 2021-05-28 06:03 | PC.NURSE ---
Pt became hypotensive x2 this shift, pt was non symptomatic alert and oriented on both occasions. Paged and received new orders x2, per AUG. FSBS have been 231, 197. Pt is stand by assist to bathroom and has voided x2 thus far in shift. Pt is able to make needs known to staff.
[2021-05-28 07:03] VITALS: BP 105/40
[2021-05-28 07:17] LABS: Basophils % 0.1 % (0.1-2.0); Lymphocytes # 0.9 K/mm3 (0.7-4.5); Lymphocytes % 6.9 % (10-50); Mean Corpuscular HGB Conc 30.8 g/dL (31.8-35.4); Mean Corpuscular Hemoglobin 23.7 pg (27.0-31.2); Mean Corpuscular Volume 76.9 fl (81-99); Mean Platelet Volume 10.3 fl (7.4-10.4); Monocytes # 0.9 K/mm3 (0.1-1.0); Monocytes % 6.7 % (1.7-9.3); Neutrophils # 11.3 K/mm3 (1.8-7.8); Neutrophils % 86.3 % (37.0-80.0); Platelet Count 185 K/mm3 (142-424); Red Blood Count 3.77 M/mm3 (4.20-5.40); Red Cell Distribution Width 16.5 % (11.5-17.5); White Blood Count 13.1 K/mm3 (4.8-10.8)
[2021-05-28 07:23] LABS: Chloride 105 mmol/L (98-107); Potassium 3.1 mmoL/L (3.5-5.1); Sodium 133 mmol/L (136-145)
[2021-05-28 07:26] LABS: Anion Gap 9.1 mEq/L (5-15); Blood Urea Nitrogen 23 mg/dl (7-17); Calcium 8.2 mg/dl (8.4-10.2); Carbon Dioxide 22 mmol/L (22.0-30.0); Creatinine Clearance Estimated 97 mL/min (50-200); Estimated Glomerular Filt Rate 49 ml/min (>60); GFR (African American) 59 ML/MIN (>60); Glucose 164 mg/dl (74-100)
[2021-05-28 07:29] LABS: MANUAL DIFFERENTIAL MANUAL DIFFERENTIAL (MANUAL DIFF)
[2021-05-28 07:35] LABS: NT Pro Brain Natriuretic Pep. 1460 pg/mL (0-125)
[2021-05-28 08:00] VITALS: BP 101/53; PULSE 95; RESP 17; TEMP 36.7; O2SAT 100
--- NOTE | 2021-05-28 08:15 | P.CONPHA_ITS ---
[facility] Pharmacy VTE Monitoring - Patient Demographics Admission date: 05/27/21 Report Date: 05/28/21 Time: 08:15 Allergies/Adverse Reactions: Patient Allergies coconut Allergy (Severe, Verified 02/17/21 11:14) FACIAL SWELLING red dye Allergy (Severe, Verified 02/17/21 11:14) facial/throat swelling strawberry Allergy (Severe, Verified 02/17/21 11:14) FACIAL/THROAT SWELLING tomato Allergy (Unknown, Verified 02/17/21 11:14) Cough AND Heartburn onion Allergy (Verified 02/17/21 11:14) Vomiting lisinopril Adverse Reaction (Intermediate, Verified 02/17/21 11:14) JOBY COUGH hydrocodone [From Vicodin] Adverse Reaction (Verified 02/17/21 11:14) Vomiting oxycodone [From Percocet] Adverse Reaction (Verified 02/17/21 11:14) Vomiting Height: 1.63 m Weight: 103.873 kg Patient Problems: Current Active Problems Left ureteral calculus (Acute) Hypotension (Acute) Sepsis (Acute) Dehydration (Acute) - VTE Risk Labs: VTE Related Lab Results Hgb 9.0 g/dL (12.2-16.2) L 05/28/21 05:39 Hct 29.0 % (37.0-47.0) L 05/28/21 05:39 Plt Count 185 K/mm3 (142-424) 05/28/21 05:39 BUN 23 mg/dl (7-17) H 05/28/21 05:39 Creatinine 1.20 mg/dl (0.52-1.04) H 05/28/21 05:39 Estimated Creat Clear 97 mL/min (50-200) 05/28/21 05:39 VTE Score: 4 VTE Risk Level: Low Risk - Prophylaxis VTE Prophylaxis Ordered?: Yes Types of VTE Prophylaxis: TEDS Knee High Location of Applied Device: Bilateral Lower Extremeties
[2021-05-28 09:15] LABS: Eosinophils % 2 % (0-3); Hypochromasia 2+; Lymphocytes % 7 % (10-50); Monocytes % 2 % (2-9); Neutrophils % 89 % (42-76); Platelet Estimate Normal; Total Cells Counted 100
--- NOTE | 2021-05-28 09:31 | HMH.PHAINT ---
Clinic pharmacy is closed on Sundays, medication list was confirmed from Dr. Davis office visit from 02/17/21
--- NOTE | 2021-05-28 11:46 | HMH.HP ---
*Admission Date: 05/27/21 *Chief complaint: weakness, low blood pressure *History of present illness: Ms. Bolaños is a 45-year-old female with significant history of cardiomyopathy, reduced ejection fraction, diabetes, obesity, who presented with weakness, malaise, fatigue. Of note was seen in the ER 2 days ago with diagnosis of left ureteral calculi. Had left flank pain. Was started on Flomax, pain control, Zofran. Developed worsening hypotension after starting that regimen. Only took 1 dose of Flomax when her blood pressure dropped significantly. I reached out to an on-call pharmacist who advised her to stop the Flomax but continue her other medications. Her blood pressure has remained low and she is remained weak and fatigued. On arrival found to be hypotensive. Elevated white cell count above 20,000, and tachycardic. Given overall complexity of medical condition, diagnosis criteria for sepsis, admitted for management to medicine service. On assessment this morning she feels significantly better. Blood pressure improving. Required increased fluid resuscitation overnight. Denies any further flank pain, nausea, weakness. Denies shortness of breath or cough. No longer having CVA tenderness or abdominal pain other than left lower abdominal pain consistent with menstrual cramps. Afebrile. [facility] History I have reviewed the patient's past medical history: Yes Medical History: Reports:: Anxiety, Arrhythmia, Atherosclerotic Heart Disease, Congestive Heart Failure, Coronary Artery Disease, Diabetes Mellitus Type 2, Gastroesophageal Reflux Disease(GERD), Hyperlipidemia, Hypertension, Myocardial Infarction, Palpitations Denies:: Cancer, Diabetes Mellitus Type 1, MRSA, Seizures *Have you ever received a pneumonia vaccine?: Yes *Have you received a flu vaccine this season?: No Other Medical History: Reports: Arthritis, Fibromyalgia, Other (polycystic ovary syndrome) Other Surgeries: Yes: Cardiac Catheterization, Coronary Stent, , Dilation and Curettage, Tubal Ligation Amputation: No Fractures: Yes (L rodriguez, R foot, toes, 3 r ribs, l hand crushed, r wrist (x2)) - *Social History Last grade of school completed: Some college Smoking Status: Former smoker Tobacco Type: cigarettes # Packs/Day (cigarettes): 1 #Yrs smoked (if former smoker): 32 Alcohol Intake: former Alcohol Intake Frequency:: holidays/special occasions only Substance Use Type: crack/cocaine, painkillers *Occupational Status:: unemployed Housing: house Household Members: spouse *Travel in the last 8 weeks: None - Psychiatric History Pschychiatric History:: Reports:: Anxiety Family Hx:: Cancer, Diabetes, Heart Attack, Hyperlipidemia, Hypertension, Stroke, Substance abuse, Alcoholism, Mental illness Review of Systems - Review of Systems Review of systems:: pertinent systems reviewed and negative unless documented below (14 point review of systems performed, pertinent positives and negatives as per HPI) - *Neurologic Reports weakness Meds Home Medications Medication Instructions Recorded Confirmed Type Dapagliflozin Propanediol [Farxiga] 10 mg PO DAILY 30 Days #30 tab 09/02/20 05/27/21 Rx aspirin 81 mg chewable tablet 81 mg PO HS #30 tab 01/27/21 05/27/21 Rx Atorvastatin Calcium [Lipitor 80mg 80 mg PO HS 02/08/21 05/27/21 History Tablet*] Clopidogrel Bisulfate [Plavix 75mg 75 mg PO DAILY 02/08/21 05/27/21 History Tab] Furosemide [Furosemide 20mg Tab*] 20 mg PO DAILY 02/08/21 05/27/21 History Insulin Glargine,Hum.rec.anlog 5 unit SQ HS 02/08/21 05/28/21 History [Lantus Insulin 100units/mL 10mL vial] Pantoprazole Sodium [Protonix 40mg 40 mg PO DAILY 02/08/21 05/27/21 History tablet] Sacubitril/Valsartan [Entresto 1 each PO BID 02/08/21 05/27/21 History 24/26mg Tablet] Spironolactone [Spironolactone 25 mg PO DAILY 02/08/21 05/27/21 History 25mg Tablet] carvediloL [Carvedilol 25mg Tab] 37.5 mg PO BID 02/08/21 05/27/21 History
[2021-05-28 11:58] LABS: POC Glucose,Bedside 158 (70-110)
[2021-05-28 16:00] VITALS: BP 99/50; PULSE 95; RESP 17; TEMP 36.8; O2SAT 97
[2021-05-28 16:10] LABS: POC Glucose,Bedside 163 (70-110)
--- NOTE | 2021-05-28 16:41 | PC.NURSE ---
Pt has been pleasant and cooperative this shift. A&O X4. Pt has had complaints of a headache X 2 and received Tylenol per MAR with favorable results. Pt is currently on room air with sats. >90%. Lungs CTA. No edema noted. Skin is C/D/I. Appetite is good and pt eats the majority of all meals. Pt ambulates independently to/from the bathroom and throughout the room. Urine is being strained and there has been no evidence of a stone. Pt has had several episodes of diarrhea today and a diarrhea panel has been ordered. 20 G peripheral IV in the LT forearm is patent and SL. B/P has been low and pt has remained asymptomatic. Other VSS. Call light within reach. Will continue to monitor.
[2021-05-28 20:00] VITALS: BP 90/62; PULSE 85; RESP 18; TEMP 36.7; O2SAT 95
[2021-05-28 22:19] LABS: POC Glucose,Bedside 210 (70-110)
[2021-05-29 04:00] VITALS: BP 94/53; PULSE 88; RESP 18; TEMP 37.1; O2SAT 97
[2021-05-29 05:04] VITALS: BMI 39.4
--- NOTE | 2021-05-29 05:15 | PC.NURSE ---
pt A&Ox4, has remained on room air, HR 85-88, systolic BP 90-94, no complaints of pain this shift, pt aware of need for stool sample, hat in place in BR
[2021-05-29 05:53] LABS: POC Glucose,Bedside 203 (70-110)
[2021-05-29 07:05] LABS: Basophils % 0.2 % (0.1-2.0); Eosinophils % 0.5 % (0.1-12.0); Hematocrit 28.6 % (37.0-47.0); Hemoglobin 8.6 g/dL (12.2-16.2); Lymphocytes % 11.7 % (10-50); Mean Corpuscular HGB Conc 30.1 g/dL (31.8-35.4); Mean Corpuscular Hemoglobin 23.5 pg (27.0-31.2); Mean Corpuscular Volume 78.2 fl (81-99); Mean Platelet Volume 8.9 fl (7.4-10.4); Monocytes # 0.7 K/mm3 (0.1-1.0); Monocytes % 8.2 % (1.7-9.3); Neutrophils # 6.7 K/mm3 (1.8-7.8); Neutrophils % 79.5 % (37.0-80.0); Platelet Count 148 K/mm3 (142-424); Red Blood Count 3.66 M/mm3 (4.20-5.40); Red Cell Distribution Width 16.6 % (11.5-17.5); White Blood Count 8.5 K/mm3 (4.8-10.8)
[2021-05-29 07:21] LABS: Chloride 106 mmol/L (98-107)
[2021-05-29 07:22] LABS: Potassium 3.1 mmoL/L (3.5-5.1); Sodium 134 mmol/L (136-145)
[2021-05-29 07:25] LABS: Anion Gap 9.1 mEq/L (5-15); Blood Urea Nitrogen 18 mg/dl (7-17); Carbon Dioxide 22 mmol/L (22.0-30.0); Creatinine Clearance Estimated 131 mL/min (50-200); Estimated Glomerular Filt Rate 68 ml/min (>60); GFR (African American) 82 ML/MIN (>60); Glucose 191 mg/dl (74-100)
[2021-05-29 08:00] VITALS: BP 94/55; PULSE 87; RESP 18; TEMP 36.8; O2SAT 100
--- NOTE | 2021-05-29 08:27 | HMH.DCSUM ---
General - General Admission date:: 05/27/21 Discharge date: 05/29/21 HPI HPI: Ms. Bolaños is a 45-year-old female with significant history of cardiomyopathy, reduced ejection fraction, diabetes, obesity, who presented with weakness, malaise, fatigue. Of note was seen in the ER 2 days ago with diagnosis of left ureteral calculi. Had left flank pain. Was started on Flomax, pain control, Zofran. Developed worsening hypotension after starting that regimen. Only took 1 dose of Flomax when her blood pressure dropped significantly. I reached out to an on-call pharmacist who advised her to stop the Flomax but continue her other medications. Her blood pressure has remained low and she is remained weak and fatigued. On arrival found to be hypotensive. Elevated white cell count above 20,000, and tachycardic. Given overall complexity of medical condition, diagnosis criteria for sepsis, admitted for management to medicine service. On assessment this morning she feels significantly better. Blood pressure improving. Required increased fluid resuscitation overnight. Denies any further flank pain, nausea, weakness. Denies shortness of breath or cough. No longer having CVA tenderness or abdominal pain other than left lower abdominal pain consistent with menstrual cramps. Afebrile. Hospital Course Hospital Course: Patient was admitted. She was given IV fluids overnight along with IV ceftriaxone. This morning she feels much better, no dizziness, no wooziness. Blood pressure is much better controlled and she has been making good urine output. Leukocytosis is also improved. Urine culture is growing gram-negative rods. Plan will be to discharge home on cefdinir since she has improved on that, we will follow culture results closely. We will adjust therapy as an outpatient. No other medication changes. She will follow-up in our office on morning for reevaluation of her urine culture. Objective Vital signs: Temp Pulse Resp BP Pulse Ox 98.8 F 88 18 94/53 L 97 05/29/21 04:00 05/29/21 04:00 05/29/21 04:00 05/29/21 04:00 05/29/21 04:00 no acute distress - *Routine HEENT Exam Head: Present: normocephalic Eye: Present: EOMI, PERRL ENT: Present: mucous membranes moist - *Routine Neck Exam Present: supple - *Routine Respiratory Exam Present: CTA bilaterally - *Routine Cardiovascular Exam Present: RRR - *Routine Abdominal Exam Present: soft, normoactive bowel sounds. Absent: tenderness - *Routine Extremities Exam Absent: cyanosis, clubbing, edema - *Routine Skin Exam Present: warm. Absent: rash - Detailed Eye Exam Eyelids: Bilateral normal inspection Results Labs on day of discharge: Labs from last 24 hours 05/29/21 05/29/21 05/29/21 05:45 05:45 05:43 WBC 8.5 D RBC 3.66 L Hgb 8.6 L Hct 28.6 L MCV 78.2 L MCH 23.5 L MCHC 30.1 L RDW 16.6 Plt Count 148 MPV 8.9 Neut % (Auto) 79.5 Lymph % (Auto) 11.7 [place] % (Auto) 8.2 Eos % (Auto) 0.5 Baso % (Auto) 0.2 Neut # (Auto) 6.7 Lymph # (Auto) 1.0 [place] # (Auto) 0.7 Eos # (Auto) 0.0 Baso # (Auto) 0.0 Total Counted Neutrophils % (Manual) Lymphocytes % (Manual) Monocytes % (Manual) Eosinophils % (Manual) Platelet Estimate Hypochromasia Sodium 134 L Potassium 3.1 L Chloride 106 Carbon Dioxide 22 Anion Gap 9.1 BUN 18 H Creatinine 0.90 D Estimated Creat Clear 131 Estimated GFR 68 Est GFR ( Amer) 82 D Glucose 191 H POC Glucose 203 H Calcium 8.0 L Magnesium 2.0 05/28/21 05/28/21 05/28/21 21:21 15:53 11:46 WBC RBC Hgb Hct MCV MCH MCHC RDW Plt Count MPV Neut % (Auto) Lymph % (Auto) [place] % (Auto) Eos % (Auto) Baso % (Auto) Neut # (Auto) Lymph # (Auto) [place] # (Auto) Eos # (Auto) Baso # (Auto) Total Counted N
[2021-05-29 21:21] LABS: POC Glucose,Bedside 175 (70-110)
== END 2021-05-29 10:50 | disposition home or self-care (01) | DRG 872 ==
LOC: ER 16:11 → 2ND 05-28 07:10
PROVIDERS: Admitting Provider Internal Medicine Adolescent Medicine; Emergency Provider Emergency Medicine; PCP Internal Medicine Adolescent Medicine; Visit Provider Internal Medicine Adolescent Medicine
DX: A41.9 Sepsis, unspecified organism (principal); N17.9 Acute kidney failure, unspecified; N12 Tubulo-interstitial nephritis, not specified as acute or chronic; I50.22 Chronic systolic (congestive) heart failure; N20.1 Calculus of ureter; I25.10 Atherosclerotic heart disease of native coronary artery without angina pectoris; E11.9 Type 2 diabetes mellitus without complications; I11.0 Hypertensive heart disease with heart failure; R65.20 Severe sepsis without septic shock; Z95.5 Presence of coronary angioplasty implant and graft; Z79.4 Long term (current) use of insulin; I25.5 Ischemic cardiomyopathy; N20.9 Urinary calculus, unspecified; E66.9 Obesity, unspecified; Z68.39 Body mass index [BMI] 39.0-39.9, adult; I25.2 Old myocardial infarction; Z95.810 Presence of automatic (implantable) cardiac defibrillator; E78.5 Hyperlipidemia, unspecified; M79.7 Fibromyalgia; Z87.891 Personal history of nicotine dependence; B96.20 Unspecified Escherichia coli [E. coli] as the cause of diseases classified elsewhere; K21.9 Gastro-esophageal reflux disease without esophagitis
CPT/HCPCS: 36415; 71045; 74176; 80048; 80053; 81001; 81025; 82962; 83605; 83690; 83735; 83880; 84484; 85007; 85025; 87040; 87086; 87088; 87186; 93005; 96365; 96367; 96375; 99283; 99285; C9803; J2405; U0003; U0005

== ENCOUNTER → 2021-06-29 13:33 | Outpatient (CLI) | payer BC, OTHER, SELFPAY | PROVIDERS: PCP Internal Medicine Adolescent Medicine; Visit Provider Nurse Practitioner | DX: U07.1 COVID-19 (principal) | CPT/HCPCS: C9803; U0003; U0005 ==

== ENCOUNTER 2021-07-29 12:15 | Emergency (ER) | payer BC, OTHER, SELFPAY ==
[2021-07-29 12:24] VITALS: BP 140/100; PULSE 80; RESP 20; O2SAT 98; BMI 41.4
[2021-07-29 13:22] VITALS: PULSE 80; RESP 20; O2SAT 98; BMI 41.4
--- NOTE | 2021-07-29 13:56 | HMH.EDUTC ---
[facility] [place] Impression: Pain, dental, Dental abscess, Jaw pain Disposition: Home, Self-Care Condition on Discharge: Good Instructions: Tooth Abscess, DI for Dental Pain Additional Instructions: Drink plenty of fluids. You have to follow up with a dentist. It is dangerous to have this much infection inside your mouth. It is too close to your brain. And, it is fairly easy for infection to spread from your teeth to your heart valves. Take tylenol for pain or fever. Take the antibiotics as directed. Follow up with your regular doctor. GO TO THE ER FOR ANY WORSENING SYMPTOMS Prescriptions: Amoxicillin/Potassium Clav [Augmentin 875-125 Tablet] 1 tab PO Q12H 10 Days #20 tab Transmission Status: Received by [facility] Referrals: Anatoliy Davis MD [Primary Care Provider] - Time of Disposition: 14:25 Medical Decision Making - Medical Records Medical records reviewed: No: I reviewed the patient's medical records. - Dameon Inquiry Pt receiving controlled substance: No Vital Signs: 07/29/21 12:24 07/29/21 13:22 07/29/21 14:40 Temperature 98.3 F Temperature Source Oral Pulse Rate 80 Pulse Rate [Radial] 80 80 Respiratory Rate 20 20 20 Blood Pressure 140/100 H Blood Pressure [Right Arm] 140/100 H Blood Pressure Mean [Right Arm] 113 02 Sat by Pulse Oximetry 98 98 Oxygen Delivery Method Room Air Orders (Tests/Meds): ED MEDICATIONS Discontinued Medications Generic Name Dose Route Start Last Admin Trade Name Freq PRN Reason Stop Dose Admin Ceftriaxone Sodium 1 gm 07/29/21 13:58 07/29/21 14:24 Ceftriaxone 1gm Vial IM 07/29/21 13:59 1 gm ONCE ONE Administration Ketorolac Tromethamine 60 mg 07/29/21 13:58 07/29/21 14:24 Ketorolac 60mg/2ml Vial IM 07/29/21 13:59 60 mg ONCE ONE Administration Lidocaine HCl 0 ml 07/29/21 13:58 07/29/21 14:24 Lidocaine 1% 5ml Pf Vial IM 07/29/21 13:59 2 ml ONCE ONE [place] [facility] [place] - General Stated complaint: broke teeth while vomiting, jaw and head pain Time Seen by Provider: 07/29/21 13:56 Mode of Arrival: Ambulatory Source of Information: Patient Limitations: No Limitations Description of Symptoms (Recalled from Triage Doc. by RN): pt c/o R upper dental pain. pt states the pain has been so bad she has been unable to eat or sleep. pt has been febrile and had n/v. HEENT Symptoms (Recalled from RN notes): Yes Resp Symptoms (Recalled from RN notes): No Skin Symptoms (Recalled from RN notes): No MS Symptoms (Recalled from RN notes): No Functional Status (Recalled from RN notes): wnl - History of Present Illness Provider Complaint: She c/o dental pain for the past 3 days. She has a history of having extreme anxiety about going to a dentist, so her teeth are in a bad shape. She has multiple decayed and broken teeth. Her current pain began after she bit down too hard and broke one of her upper right jaw teeth. - Related Data Home Medications Medication Instructions Recorded Confirmed Clopidogrel Bisulfate [Plavix 75mg 75 mg PO DAILY 02/08/21 06/02/21 Tab] Furosemide [Furosemide 20mg Tab*] 20 mg PO DAILY 02/08/21 06/02/21 Insulin Glargine,Hum.rec.anlog 5 unit SQ HS 02/08/21 06/02/21 [Lantus Insulin 100units/mL 10mL vial] Pantoprazole Sodium [Protonix 40mg 40 mg PO DAILY 02/08/21 06/02/21 tablet] Sacubitril/Valsartan [Entresto 1 each PO BID 02/08/21 06/02/21 24/26mg Tablet] Spironolactone [Spironolactone 25 mg PO DAILY 02/08/21 06/02/21 25mg Tablet] carvediloL [Carvedilol 25mg Tab] 37.5 mg PO BID 02/08/21 06/02/21 Metformin HCl 500 mg PO BID 05/28/21 06/02/21 Multivitamin 1 tab PO DAILY 05/28/21 06/02/21 Previous Rx's Medication Instructions Recorded Dapagliflozin Propanediol [Farxiga] 10 mg PO DAILY 30 Days #30 tab 09/02/20 Cefdinir [Omnicef 300mg Capsule] 300 mg PO BID #14 cap 05/29/21 aspirin 81 mg chewable tablet See Rx Instruc
[2021-07-29 14:40] VITALS: BP 140/100; PULSE 80; RESP 20; TEMP 36.8; O2SAT 98
== END 2021-07-29 14:40 | disposition home or self-care (01) ==
PROVIDERS: Emergency Provider Nurse Practitioner Family; PCP Internal Medicine Adolescent Medicine
DX: K04.7 Periapical abscess without sinus (principal); I25.10 Atherosclerotic heart disease of native coronary artery without angina pectoris; E11.9 Type 2 diabetes mellitus without complications; K21.9 Gastro-esophageal reflux disease without esophagitis; I10 Essential (primary) hypertension; E78.5 Hyperlipidemia, unspecified; I25.2 Old myocardial infarction; M79.7 Fibromyalgia
CPT/HCPCS: 96372; 99202; G0463; J0696

== ENCOUNTER 2021-08-04 22:19 | Emergency (ER) | payer BC, OTHER, SELFPAY ==
[2021-08-04 22:30] VITALS: BP 155/93; PULSE 87; RESP 20; O2SAT 100; BMI 40.1
[2021-08-04 23:45] VITALS: BP 126/80; PULSE 88; O2SAT 98
--- NOTE | 2021-08-05 00:04 | HMH.EDDENT ---
ED Disposition Clinical Impression: Pain, dental Disposition: Home, Self-Care Condition on Discharge: Good Instructions: DI for Dental Pain Additional Instructions: use meds and call pcp for follow up Referrals: Anatoliy Davis MD [Primary Care Provider] - - Critical Care Critical Care Time: No Attestation: On 08/04/21, the high probability of a clinically significant, sudden or life threatening deterioration of the following system(s) required my full and direct attention, intervention and personal management. The time I documented below is in addition to time spent performing reported procedures but includes the following listed in this critical care notation. Medical Decision Making - Medical Records Medical records reviewed: Yes: I reviewed the patient's medical records. - Dameon Inquiry Pt receiving controlled substance: No Vital Signs: 08/04/21 22:30 08/04/21 23:45 Pulse Rate 88 Pulse Rate [Apical] 87 Respiratory Rate 20 Blood Pressure 126/80 Blood Pressure [Right Arm] 155/93 H Blood Pressure Mean [Right Arm] 113 Blood Pressure Source [Right Arm] Automatic Cuff Blood Pressure Position [Right Arm] Sitting 02 Sat by Pulse Oximetry 100 98 Oxygen Delivery Method Room Air Room Air - Lab Data Lab results reviewed: Yes: I reviewed the patient's lab results. Medical Decision Narrative: will ask pt to call pcp for follow up Dental HPI - General Chief complaint: Dental/Oral Stated complaint: dental pain Time Seen by Provider: 08/05/21 00:00 Mode of Arrival: Ambulatory Source of Information: Patient, Medical Record Limitations: No Limitations Description of Symptoms (Recalled from ER Triage Doc. by RN): Patient c/o dental pain stemming from right lower jaw and radiating to the front of her mouth. States that she went to the [facility] on saturday the and was prescribed augmentin for infection and told to take tylenol for pain. States that she was told by her dentist that she would have to get rid of the infection prior to being able to schedule a dentist appointment. - History of Present Illness HPI Narrative: has ongoing dental pain worse kade WAGNER Complaint: tooth pain Onset (ago): day(s) Duration: intermittent Severity: moderate Context: history of dental caries, poor dental care Associated symptoms: gum swelling Treatment prior to arrival: topical analgesic - Related Data Home Medications Medication Instructions Recorded Confirmed Clopidogrel Bisulfate [Plavix 75mg 75 mg PO DAILY 02/08/21 06/02/21 Tab] Furosemide [Furosemide 20mg Tab*] 20 mg PO DAILY 02/08/21 06/02/21 Insulin Glargine,Hum.rec.anlog 5 unit SQ HS 02/08/21 06/02/21 [Lantus Insulin 100units/mL 10mL vial] Pantoprazole Sodium [Protonix 40mg 40 mg PO DAILY 02/08/21 06/02/21 tablet] Sacubitril/Valsartan [Entresto 1 each PO BID 02/08/21 06/02/21 24/26mg Tablet] Spironolactone [Spironolactone 25 mg PO DAILY 02/08/21 06/02/21 25mg Tablet] carvediloL [Carvedilol 25mg Tab] 37.5 mg PO BID 02/08/21 06/02/21 Metformin HCl 500 mg PO BID 05/28/21 06/02/21 Multivitamin 1 tab PO DAILY 05/28/21 06/02/21 Amoxicillin [Amoxicillin 875MG 875 mg PO Q12H 08/04/21 Tab] Amoxicillin/Potassium Clav 1 tab PO Q12H 08/04/21 [Augmentin 875-125 Tablet] Aspirin See Rx Instructions .ROUTE .COMPLEX 08/04/21 Atorvastatin Calcium [Lipitor 80mg See Rx Instructions .ROUTE .COMPLEX 08/04/21 Tablet*] Cefdinir [Omnicef 300mg Capsule] 300 mg PO BID 08/04/21 Previous Rx's Medication Instructions Recorded Dapagliflozin Propanediol [Farxiga] 10 mg PO DAILY 30 Days #30 tab 09/02/20 Allergies Allergy/AdvReac Type Severity Reaction Status Date / Time coconut Allergy Severe FACIAL Verified 06/02/21 13:36 SWELLING red dye Allergy Severe facial/throat Verified 06/02/21 13:36 swelling strawberry Allergy Severe FACIAL/THROAT Verified 06/02/21 13:36 SWELLING tomato Allergy U
[2021-08-05 00:10] VITALS: BP 111/72; PULSE 87; RESP 18; TEMP 36.8; O2SAT 98
== END 2021-08-05 00:16 | disposition home or self-care (01) ==
PROVIDERS: Emergency Provider Emergency Medicine; PCP Internal Medicine Adolescent Medicine
DX: K08.89 Other specified disorders of teeth and supporting structures (principal); R68.84 Jaw pain; K02.9 Dental caries, unspecified; E11.9 Type 2 diabetes mellitus without complications; I10 Essential (primary) hypertension; I25.2 Old myocardial infarction; M79.7 Fibromyalgia; F41.9 Anxiety disorder, unspecified; Z87.891 Personal history of nicotine dependence; Z79.899 Other long term (current) drug therapy
CPT/HCPCS: 99281; 99283